=== PATIENT | male | born 1970 | race Caucasian/White ===

== ENCOUNTER → 2023-06-20 13:32 | Outpatient (REF) | payer OTHER, SELFPAY | LOC: RAD 13:32 | PROVIDERS: ATTENDING PHYSICIAN Nurse Practitioner; FAMILY PHYSICIAN Internal Medicine | DX: M54.50 Low back pain, unspecified (principal); M25.551 Pain in right hip | CPT/HCPCS: 72100; 73502 ==

== ENCOUNTER → 2023-07-08 06:29 | Day surgery (SDC) | payer OTHER, SELFPAY | LOC: GI 06:29 | PROVIDERS: ATTENDING PHYSICIAN Internal Medicine Gastroenterology | DX: Z12.11 Encounter for screening for malignant neoplasm of colon (principal); K64.0 First degree hemorrhoids; D12.3 Benign neoplasm of transverse colon; K63.5 Polyp of colon; K62.1 Rectal polyp | CPT/HCPCS: 45385; 45380; 88305 ==

== ENCOUNTER → 2023-07-29 09:54 | Outpatient (REF) | payer OTHER, SELFPAY | LOC: MRI 3T 09:54 | PROVIDERS: ATTENDING PHYSICIAN Surgery; FAMILY PHYSICIAN Internal Medicine | DX: R97.20 Elevated prostate specific antigen [PSA] (principal) | CPT/HCPCS: 72197; A9575 ==

== ENCOUNTER → 2023-08-29 08:22 | Outpatient (REF) | payer OTHER, SELFPAY ==
[2023-08-29] MEDS: ANCEF 10 IV (08:57)
[2023-08-29 09:05] VITALS: BP 139/98; BP_SYST 64
[2023-08-29 10:25] VITALS: BP 134/89; BP_SYST 57
== END ==
LOC: RADI 08:22
PROVIDERS: ATTENDING PHYSICIAN Internal Medicine Hematology & Oncology
DX: C61 Malignant neoplasm of prostate (principal); C79.51 Secondary malignant neoplasm of bone
CPT/HCPCS: 36561; 76937; 77001; 99152; 99153; C1788

== ENCOUNTER → 2023-09-20 16:17 | Outpatient (REF) | payer OTHER, SELFPAY ==
[2023-09-20 14:47] LABS: % Basophils 0.1 % (0-2); % Immature Granulocytes 17.4 % (0-0.5); % Lymphocytes 2.5 % (20.5-51.1); % Monocytes 2.2 % (1.7-9.3); % Neutrophils 77.8 % (42.2-75.2); Absolute Basophils 0.1 10^3/uL (0-0.2); Absolute Immature Granulocytes 7.1 10^3/uL (0-0.05); Absolute Monocytes 0.9 10^3/uL (0.1-0.6); Absolute Neutrophils 31.6 10^3/uL (1.4-6.5); Hematocrit 42.8 % (39.0-52.0); Hemoglobin 14.6 g/dL (13.0-18.0); Mean Corp Hgb Conc. 34.1 g/dL (33.0-37.0); Mean Corpuscular Volume 87.9 fL (80.0-94.0); Mean Platelet Volume 10.2 fL (7.4-10.4); Platelet Count 174 10^3/uL (130-400); Red Blood Cell Count 4.87 10^6/uL (4.70-6.10); Red Cell Dist. Width 15.6 % (11.5-14.5)
[2023-09-20 14:51] LABS: White Blood Cell Count 40.7 10^3/uL (4.8-10.8)
[2023-09-20 15:42] LABS: ALT (SGPT) 123 U/L (0-50); AST (SGOT) 50 U/L (17-59); Albumin 4.3 g/dl (3.5-5.0); Alkaline Phosphatase 169 U/L (38-126); Blood Urea Nitrogen 28 mg/dl (9-20); Calcium 9.4 mg/dl (8.4-10.2); Carbon Dioxide 25 mmol/L (22-30); Chloride 100 mmol/L (98-107); Glucose 131 mg/dl (70-99); Potassium 4.3 mmol/L (3.5-5.1); Sodium 135 mmol/L (135-145); Total Bilirubin 0.6 mg/dl (0.2-1.3); Total Protein 6.6 g/dl (6.3-8.2); eGFR > 60.00
== END ==
LOC: OIDL 16:17
PROVIDERS: ATTENDING PHYSICIAN Internal Medicine Hematology & Oncology
DX: C61 Malignant neoplasm of prostate (principal)
CPT/HCPCS: 80053; 85025

== ENCOUNTER → 2023-09-27 09:08 | Outpatient (REF) | payer OTHER, SELFPAY ==
[2023-09-27 10:06] LABS: Hematocrit 43.7 % (39.0-52.0); Hemoglobin 14.2 g/dL (13.0-18.0); Mean Corp Hgb Conc. 32.5 g/dL (33.0-37.0); Mean Corpuscular Hgb 29.2 pg (27.0-31.0); Mean Corpuscular Volume 89.7 fL (80.0-94.0); Red Blood Cell Count 4.87 10^6/uL (4.70-6.10); Red Cell Dist. Width 16.2 % (11.5-14.5); White Blood Cell Count 37.9 10^3/uL (4.8-10.8)
[2023-09-27 10:53] LABS: Absolute Neutrophils -Man Diff 36.3 10^3/uL (1.4-6.5); Band Neutrophils 3 % (0-3); Lymphocytes 4 % (20-51); Segmented Neutrophils 93 % (42-75)
[2023-09-27 10:55] LABS: Platelets Checked YES
[2023-09-27 10:56] LABS: Hypersegmented Neutrophil FEW; Normal RBC Morphology No
[2023-09-27 10:57] LABS: Tear Drop Red Blood Cells FEW; Total Cells Counted 100
[2023-09-27 10:58] LABS: Mean Platelet Volume 10.4 fL (7.4-10.4); Platelet Count 121 10^3/uL (130-400)
[2023-09-27 11:13] LABS: ALT (SGPT) 151 U/L (0-50); AST (SGOT) 51 U/L (17-59); Albumin 4.2 g/dl (3.5-5.0); Alkaline Phosphatase 135 U/L (38-126); Blood Urea Nitrogen 23 mg/dl (9-20); Calcium 9.3 mg/dl (8.4-10.2); Carbon Dioxide 25 mmol/L (22-30); Chloride 101 mmol/L (98-107); Glucose 69 mg/dl (70-99); Potassium 4.5 mmol/L (3.5-5.1); Sodium 137 mmol/L (135-145); Total Bilirubin 0.9 mg/dl (0.2-1.3); Total Protein 6.8 g/dl (6.3-8.2); eGFR > 60.00
== END ==
LOC: REG 09:08
PROVIDERS: ATTENDING PHYSICIAN Internal Medicine Hematology & Oncology; FAMILY PHYSICIAN Internal Medicine
DX: C61 Malignant neoplasm of prostate (principal); C79.51 Secondary malignant neoplasm of bone
CPT/HCPCS: 36415; 80053; 85025

== ENCOUNTER → 2023-10-03 16:39 | Outpatient (REF) | payer OTHER, SELFPAY | LOC: RAD 16:39 | PROVIDERS: ATTENDING PHYSICIAN Nurse Practitioner Adult Health; FAMILY PHYSICIAN Internal Medicine | DX: C61 Malignant neoplasm of prostate (principal); C79.51 Secondary malignant neoplasm of bone | CPT/HCPCS: 93971 ==

== ENCOUNTER → 2023-10-04 07:28 | Outpatient (REF) | payer OTHER, SELFPAY ==
[2023-10-04 08:50] LABS: % Basophils 0.2 % (0-2); % Eosinophils 0.1 % (0-6); % Immature Granulocytes 21.8 % (0-0.5); % Lymphocytes 9.9 % (20.5-51.1); % Monocytes 7.2 % (1.7-9.3); % Neutrophils 60.8 % (42.2-75.2); Absolute Immature Granulocytes 1.9 10^3/uL (0-0.05); Absolute Lymphocytes 0.9 10^3/uL (1.2-3.4); Absolute Monocytes 0.6 10^3/uL (0.1-0.6); Absolute Neutrophils 5.2 10^3/uL (1.4-6.5); Hematocrit 33.6 % (39.0-52.0); Hemoglobin 11.4 g/dL (13.0-18.0); Mean Corp Hgb Conc. 33.9 g/dL (33.0-37.0); Mean Corpuscular Hgb 29.4 pg (27.0-31.0); Mean Corpuscular Volume 86.6 fL (80.0-94.0); Mean Platelet Volume 9.6 fL (7.4-10.4); Nucleated Red Blood Cells % 0.7 % (-); Red Blood Cell Count 3.88 10^6/uL (4.70-6.10); Red Cell Dist. Width 16.8 % (11.5-14.5); White Blood Cell Count 8.6 10^3/uL (4.8-10.8)
[2023-10-04 09:09] LABS: ALT (SGPT) 62 U/L (0-50); AST (SGOT) 38 U/L (17-59); Albumin 3.5 g/dl (3.5-5.0); Alkaline Phosphatase 128 U/L (38-126); Blood Urea Nitrogen 10 mg/dl (9-20); Calcium 8.4 mg/dl (8.4-10.2); Carbon Dioxide 25 mmol/L (22-30); Chloride 103 mmol/L (98-107); Glucose 91 mg/dl (70-99); Potassium 3.6 mmol/L (3.5-5.1); Sodium 137 mmol/L (135-145); Total Bilirubin 0.9 mg/dl (0.2-1.3); Total Protein 5.9 g/dl (6.3-8.2); eGFR > 60.00
[2023-10-04 16:52] LABS: Platelet Count 74 10^3/uL (130-400)
== END ==
LOC: REG 07:28
PROVIDERS: ATTENDING PHYSICIAN Internal Medicine Hematology & Oncology; FAMILY PHYSICIAN Internal Medicine
DX: C61 Malignant neoplasm of prostate (principal); C79.51 Secondary malignant neoplasm of bone
CPT/HCPCS: 36415; 80053; 85025

== ENCOUNTER → 2023-10-10 08:35 | Outpatient (REF) | payer OTHER, SELFPAY ==
[2023-10-10 09:06] LABS: Hematocrit 31.8 % (39.0-52.0); Hemoglobin 10.9 g/dL (13.0-18.0); Mean Corp Hgb Conc. 34.3 g/dL (33.0-37.0); Mean Corpuscular Hgb 29.6 pg (27.0-31.0); Mean Corpuscular Volume 86.4 fL (80.0-94.0); Red Blood Cell Count 3.68 10^6/uL (4.70-6.10); Red Cell Dist. Width 17.3 % (11.5-14.5); White Blood Cell Count 18.8 10^3/uL (4.8-10.8)
[2023-10-10 09:42] LABS: ALT (SGPT) 91 U/L (0-50); AST (SGOT) 70 U/L (17-59); Albumin 3.2 g/dl (3.5-5.0); Alkaline Phosphatase 121 U/L (38-126); Blood Urea Nitrogen 7 mg/dl (9-20); Calcium 7.3 mg/dl (8.4-10.2); Carbon Dioxide 27 mmol/L (22-30); Chloride 103 mmol/L (98-107); Glucose 92 mg/dl (70-99); Iron 38 ug/dl (49-181); Potassium 3.4 mmol/L (3.5-5.1); Sodium 137 mmol/L (135-145); Total Bilirubin 0.8 mg/dl (0.2-1.3); eGFR > 60.00
[2023-10-10 09:50] LABS: Percent Saturation 20 % (20-50); Total Iron Binding Capacity 189 ug/dl (261-462)
[2023-10-10 10:11] LABS: PSA, Total - Diagnostic 0.88 ng/ml (0.0-4.0)
[2023-10-10 13:26] LABS: Platelet Count 383 10^3/uL (130-400)
[2023-10-10 13:29] LABS: Absolute Neutrophils -Man Diff 14.4 10^3/uL (1.4-6.5); Band Neutrophils 8 % (0-3); Lymphocytes 4 % (20-51); Metamyelocytes 6 % (-); Monocytes 8 % (2-9); Myelocytes 5 % (-); Normal RBC Morphology No; Nucleated Red Blood Cells 1 (-); Platelets Checked Yes; Segmented Neutrophils 69 % (42-75); Tear Drop Red Blood Cells Occasional; Total Cells Counted 100
== END ==
LOC: REG 08:35
PROVIDERS: ATTENDING PHYSICIAN Internal Medicine Hematology & Oncology; FAMILY PHYSICIAN Internal Medicine
DX: C61 Malignant neoplasm of prostate (principal); C79.51 Secondary malignant neoplasm of bone; I82.4Z1 Acute embolism and thrombosis of unspecified deep veins of right distal lower extremity
CPT/HCPCS: 36415; 80053; 82728; 83540; 83550; 84153; 85025

== ENCOUNTER → 2023-10-12 10:00 | Outpatient (REF) | payer OTHER, SELFPAY | LOC: OIDL 10:00 | PROVIDERS: ATTENDING PHYSICIAN Internal Medicine Hematology & Oncology | DX: C61 Malignant neoplasm of prostate (principal) | CPT/HCPCS: 84443 ==

== ENCOUNTER → 2023-10-17 07:42 | Outpatient (REF) | payer OTHER, SELFPAY ==
[2023-10-17 08:52] LABS: % Basophils 0.9 % (0-2); % Eosinophils 0.2 % (0-6); % Immature Granulocytes 0.5 % (0-0.5); % Lymphocytes 9.8 % (20.5-51.1); % Monocytes 0.5 % (1.7-9.3); % Neutrophils 88.1 % (42.2-75.2); Absolute Basophils 0.1 10^3/uL (0-0.2); Absolute Lymphocytes 0.6 10^3/uL (1.2-3.4); Hematocrit 34.4 % (39.0-52.0); Hemoglobin 11.1 g/dL (13.0-18.0); Mean Corp Hgb Conc. 32.3 g/dL (33.0-37.0); Mean Corpuscular Hgb 28.8 pg (27.0-31.0); Mean Corpuscular Volume 89.1 fL (80.0-94.0); Mean Platelet Volume 9.4 fL (7.4-10.4); Nucleated Red Blood Cells % 0 % (-); Platelet Count 498 10^3/uL (130-400); Red Blood Cell Count 3.86 10^6/uL (4.70-6.10); White Blood Cell Count 5.7 10^3/uL (4.8-10.8)
[2023-10-17 09:19] LABS: ALT (SGPT) 239 U/L (0-50); AST (SGOT) 90 U/L (17-59); Albumin 3.9 g/dl (3.5-5.0); Alkaline Phosphatase 124 U/L (38-126); Blood Urea Nitrogen 12 mg/dl (9-20); Carbon Dioxide 23 mmol/L (22-30); Chloride 105 mmol/L (98-107); Glucose 89 mg/dl (70-99); Potassium 4.5 mmol/L (3.5-5.1); Sodium 140 mmol/L (135-145); Total Bilirubin 0.7 mg/dl (0.2-1.3); Total Protein 6.9 g/dl (6.3-8.2); eGFR > 60.00
== END ==
LOC: REG 07:42
PROVIDERS: ATTENDING PHYSICIAN Internal Medicine Hematology & Oncology; FAMILY PHYSICIAN Internal Medicine
DX: C61 Malignant neoplasm of prostate (principal); C79.51 Secondary malignant neoplasm of bone
CPT/HCPCS: 36415; 80053; 85025

== ENCOUNTER → 2023-10-24 07:36 | Outpatient (REF) | payer OTHER, SELFPAY ==
[2023-10-24 08:40] LABS: Hematocrit 33.7 % (39.0-52.0); Hemoglobin 10.7 g/dL (13.0-18.0); Mean Corp Hgb Conc. 31.8 g/dL (33.0-37.0); Mean Corpuscular Hgb 29.5 pg (27.0-31.0); Mean Corpuscular Volume 92.8 fL (80.0-94.0); Red Blood Cell Count 3.63 10^6/uL (4.70-6.10); Red Cell Dist. Width 19.7 % (11.5-14.5); White Blood Cell Count 6.4 10^3/uL (4.8-10.8)
[2023-10-24 09:29] LABS: ALT (SGPT) 77 U/L (0-50); AST (SGOT) 40 U/L (17-59); Albumin 4.1 g/dl (3.5-5.0); Alkaline Phosphatase 142 U/L (38-126); Blood Urea Nitrogen 11 mg/dl (9-20); Calcium 9.5 mg/dl (8.4-10.2); Carbon Dioxide 23 mmol/L (22-30); Chloride 106 mmol/L (98-107); Glucose 88 mg/dl (70-99); Sodium 140 mmol/L (135-145); Total Bilirubin 0.5 mg/dl (0.2-1.3); Total Protein 6.5 g/dl (6.3-8.2); eGFR > 60.00
[2023-10-24 10:33] LABS: Mean Platelet Volume 10.1 fL (7.4-10.4); Platelet Count 164 10^3/uL (130-400)
[2023-10-24 10:34] LABS: Absolute Neutrophils -Man Diff 4.3 10^3/uL (1.4-6.5); Anisocytosis 1+; Band Neutrophils 5 % (0-3); Eosinophils 1 % (0-6); Lymphocytes 21 % (20-51); Metamyelocytes 2 % (-); Monocytes 5 % (2-9); Myelocytes 3 % (-); Normal RBC Morphology No; Platelets Checked Yes; Polychromasia Slight; Segmented Neutrophils 63 % (42-75); Total Cells Counted 100
== END ==
LOC: REG 07:36
PROVIDERS: ATTENDING PHYSICIAN Internal Medicine Hematology & Oncology; FAMILY PHYSICIAN Internal Medicine
DX: C61 Malignant neoplasm of prostate (principal); C79.51 Secondary malignant neoplasm of bone
CPT/HCPCS: 36415; 80053; 85025

== ENCOUNTER → 2023-10-31 07:09 | Outpatient (REF) | payer OTHER, SELFPAY ==
[2023-10-31 08:55] LABS: Hematocrit 31.2 % (39.0-52.0); Hemoglobin 10.5 g/dL (13.0-18.0); Mean Corp Hgb Conc. 33.7 g/dL (33.0-37.0); Mean Corpuscular Hgb 30.5 pg (27.0-31.0); Mean Corpuscular Volume 90.7 fL (80.0-94.0); Mean Platelet Volume 10.5 fL (7.4-10.4); Platelet Count 198 10^3/uL (130-400); Red Blood Cell Count 3.44 10^6/uL (4.70-6.10); Red Cell Dist. Width 19.5 % (11.5-14.5); White Blood Cell Count 16.2 10^3/uL (4.8-10.8)
[2023-10-31 09:32] LABS: ALT (SGPT) 175 U/L (0-50); AST (SGOT) 127 U/L (17-59); Alkaline Phosphatase 120 U/L (38-126); Blood Urea Nitrogen 6 mg/dl (9-20); Carbon Dioxide 24 mmol/L (22-30); Chloride 108 mmol/L (98-107); Glucose 85 mg/dl (70-99); Potassium 3.6 mmol/L (3.5-5.1); Sodium 141 mmol/L (135-145); Total Bilirubin 0.5 mg/dl (0.2-1.3); Total Protein 6.2 g/dl (6.3-8.2); eGFR > 60.00
[2023-10-31 10:00] LABS: PSA, Total - Diagnostic 0.28 ng/ml (0.0-4.0)
[2023-10-31 11:02] LABS: Absolute Neutrophils -Man Diff 13.6 10^3/uL (1.4-6.5); Band Neutrophils 4 % (0-3); Lymphocytes 7 % (20-51); Metamyelocytes 2 % (-); Monocytes 7 % (2-9); Normal RBC Morphology Yes; Platelets Checked Yes; Segmented Neutrophils 80 % (42-75); Total Cells Counted 100
== END ==
LOC: REG 07:09
PROVIDERS: ATTENDING PHYSICIAN Internal Medicine Hematology & Oncology
DX: C61 Malignant neoplasm of prostate (principal); C79.51 Secondary malignant neoplasm of bone
CPT/HCPCS: 36415; 80053; 84153; 85025

== ENCOUNTER → 2023-11-07 07:10 | Outpatient (REF) | payer OTHER, SELFPAY ==
[2023-11-07 08:13] LABS: % Basophils 0.8 % (0-2); % Eosinophils 0.2 % (0-6); % Immature Granulocytes 0.4 % (0-0.5); % Lymphocytes 17.9 % (20.5-51.1); % Monocytes 1.2 % (1.7-9.3); % Neutrophils 79.5 % (42.2-75.2); Absolute Lymphocytes 0.9 10^3/uL (1.2-3.4); Absolute Monocytes 0.1 10^3/uL (0.1-0.6); Hematocrit 33.3 % (39.0-52.0); Hemoglobin 11.2 g/dL (13.0-18.0); Mean Corp Hgb Conc. 33.6 g/dL (33.0-37.0); Mean Corpuscular Hgb 30.3 pg (27.0-31.0); Mean Platelet Volume 10.4 fL (7.4-10.4); Nucleated Red Blood Cells % 0 % (-); Platelet Count 356 10^3/uL (130-400); Red Cell Dist. Width 18.6 % (11.5-14.5)
[2023-11-07 09:03] LABS: ALT (SGPT) 235 U/L (0-50); AST (SGOT) 120 U/L (17-59); Albumin 4.3 g/dl (3.5-5.0); Alkaline Phosphatase 103 U/L (38-126); Blood Urea Nitrogen 18 mg/dl (9-20); Calcium 9.8 mg/dl (8.4-10.2); Carbon Dioxide 26 mmol/L (22-30); Chloride 104 mmol/L (98-107); Glucose 95 mg/dl (70-99); Potassium 5.1 mmol/L (3.5-5.1); Sodium 139 mmol/L (135-145); Total Bilirubin 0.6 mg/dl (0.2-1.3); Total Protein 6.6 g/dl (6.3-8.2); eGFR > 60.00
== END ==
LOC: REG 07:10
PROVIDERS: ATTENDING PHYSICIAN Internal Medicine Hematology & Oncology; FAMILY PHYSICIAN Internal Medicine
DX: C61 Malignant neoplasm of prostate (principal); C79.51 Secondary malignant neoplasm of bone
CPT/HCPCS: 36415; 80053; 85025

== ENCOUNTER → 2023-11-14 07:07 | Outpatient (REF) | payer OTHER, SELFPAY ==
[2023-11-14 08:21] LABS: Hematocrit 31.6 % (39.0-52.0); Hemoglobin 10.6 g/dL (13.0-18.0); Mean Corp Hgb Conc. 33.5 g/dL (33.0-37.0); Mean Corpuscular Hgb 31.6 pg (27.0-31.0); Mean Corpuscular Volume 94.3 fL (80.0-94.0); Mean Platelet Volume 10.7 fL (7.4-10.4); Platelet Count 189 10^3/uL (130-400); Red Blood Cell Count 3.35 10^6/uL (4.70-6.10); Red Cell Dist. Width 19.9 % (11.5-14.5); White Blood Cell Count 10.6 10^3/uL (4.8-10.8)
[2023-11-14 08:22] LABS: ALT (SGPT) 183 U/L (0-50); AST (SGOT) 83 U/L (17-59); Albumin 4.1 g/dl (3.5-5.0); Alkaline Phosphatase 144 U/L (38-126); Blood Urea Nitrogen 13 mg/dl (9-20); Calcium 9.6 mg/dl (8.4-10.2); Carbon Dioxide 27 mmol/L (22-30); Chloride 107 mmol/L (98-107); Glucose 93 mg/dl (70-99); Potassium 4.6 mmol/L (3.5-5.1); Sodium 141 mmol/L (135-145); Total Bilirubin 0.4 mg/dl (0.2-1.3); Total Protein 6.2 g/dl (6.3-8.2); eGFR > 60.00
[2023-11-14 08:48] LABS: % Basophils 0.7 % (0-2); % Eosinophils 0.2 % (0-6); % Immature Granulocytes 0.6 % (0-0.5); % Lymphocytes 9.9 % (20.5-51.1); % Monocytes 9.1 % (1.7-9.3); % Neutrophils 79.5 % (42.2-75.2); Absolute Basophils 0.1 10^3/uL (0-0.2); Absolute Immature Granulocytes 0.1 10^3/uL (0-0.05); Absolute Lymphocytes 1.1 10^3/uL (1.2-3.4); Absolute Neutrophils 8.4 10^3/uL (1.4-6.5); Nucleated Red Blood Cells % 0 % (-)
== END ==
LOC: REG 07:07
PROVIDERS: ATTENDING PHYSICIAN Internal Medicine Hematology & Oncology; FAMILY PHYSICIAN Internal Medicine
DX: C61 Malignant neoplasm of prostate (principal); C79.51 Secondary malignant neoplasm of bone
CPT/HCPCS: 36415; 80053; 85025

== ENCOUNTER → 2023-11-21 06:38 | Outpatient (REF) | payer OTHER, SELFPAY ==
[2023-11-21 07:42] LABS: Hematocrit 34.1 % (39.0-52.0); Hemoglobin 11.7 g/dL (13.0-18.0); Mean Corp Hgb Conc. 34.3 g/dL (33.0-37.0); Mean Corpuscular Hgb 31.4 pg (27.0-31.0); Mean Corpuscular Volume 91.4 fL (80.0-94.0); Mean Platelet Volume 10.6 fL (7.4-10.4); Platelet Count 216 10^3/uL (130-400); Red Blood Cell Count 3.73 10^6/uL (4.70-6.10); Red Cell Dist. Width 18.4 % (11.5-14.5); White Blood Cell Count 10.4 10^3/uL (4.8-10.8)
[2023-11-21 08:04] LABS: ALT (SGPT) 282 U/L (0-50); AST (SGOT) 178 U/L (17-59); Albumin 4.4 g/dl (3.5-5.0); Alkaline Phosphatase 106 U/L (38-126); Blood Urea Nitrogen 19 mg/dl (9-20); Calcium 9.8 mg/dl (8.4-10.2); Carbon Dioxide 26 mmol/L (22-30); Chloride 108 mmol/L (98-107); Glucose 100 mg/dl (70-99); Potassium 4.3 mmol/L (3.5-5.1); Sodium 141 mmol/L (135-145); Total Bilirubin 0.5 mg/dl (0.2-1.3); Total Protein 6.6 g/dl (6.3-8.2); eGFR > 60.00
[2023-11-21 08:19] LABS: % Basophils 0.7 % (0-2); % Eosinophils 0.6 % (0-6); % Immature Granulocytes 6.5 % (0-0.5); % Lymphocytes 12.9 % (20.5-51.1); % Monocytes 8.1 % (1.7-9.3); % Neutrophils 71.2 % (42.2-75.2); Absolute Basophils 0.1 10^3/uL (0-0.2); Absolute Eosinophils 0.1 10^3/uL (0-0.7); Absolute Immature Granulocytes 0.7 10^3/uL (0-0.05); Absolute Lymphocytes 1.4 10^3/uL (1.2-3.4); Absolute Monocytes 0.9 10^3/uL (0.1-0.6); Absolute Neutrophils 7.4 10^3/uL (1.4-6.5); Nucleated Red Blood Cells % 0.2 % (-)
[2023-11-21 08:39] LABS: PSA, Total - Diagnostic 0.21 ng/ml (0.0-4.0)
== END ==
LOC: REG 06:38
PROVIDERS: ATTENDING PHYSICIAN Internal Medicine Hematology & Oncology; FAMILY PHYSICIAN Internal Medicine
DX: C61 Malignant neoplasm of prostate (principal); C79.51 Secondary malignant neoplasm of bone
CPT/HCPCS: 36415; 80053; 84153; 85025

== ENCOUNTER → 2023-11-28 06:42 | Outpatient (REF) | payer OTHER, SELFPAY ==
[2023-11-28 08:04] LABS: % Eosinophils 0.6 % (0-6); % Immature Granulocytes 0.7 % (0-0.5); % Lymphocytes 20.7 % (20.5-51.1); % Monocytes 10.4 % (1.7-9.3); % Neutrophils 66.6 % (42.2-75.2); Absolute Basophils 0.1 10^3/uL (0-0.2); Absolute Eosinophils 0.1 10^3/uL (0-0.7); Absolute Immature Granulocytes 0.1 10^3/uL (0-0.05); Absolute Neutrophils 6.5 10^3/uL (1.4-6.5); Hemoglobin 11.2 g/dL (13.0-18.0); Mean Corp Hgb Conc. 33.9 g/dL (33.0-37.0); Mean Corpuscular Hgb 32.6 pg (27.0-31.0); Mean Corpuscular Volume 95.9 fL (80.0-94.0); Nucleated Red Blood Cells % 0 % (-); Platelet Count 282 10^3/uL (130-400); Red Blood Cell Count 3.44 10^6/uL (4.70-6.10); White Blood Cell Count 9.8 10^3/uL (4.8-10.8)
[2023-11-28 08:33] LABS: ALT (SGPT) 202 U/L (0-50); AST (SGOT) 78 U/L (17-59); Albumin 4.3 g/dl (3.5-5.0); Alkaline Phosphatase 77 U/L (38-126); Blood Urea Nitrogen 20 mg/dl (9-20); Calcium 9.6 mg/dl (8.4-10.2); Carbon Dioxide 27 mmol/L (22-30); Chloride 106 mmol/L (98-107); Glucose 94 mg/dl (70-99); Potassium 4.2 mmol/L (3.5-5.1); Sodium 142 mmol/L (135-145); Total Bilirubin 0.4 mg/dl (0.2-1.3); Total Protein 6.2 g/dl (6.3-8.2); eGFR > 60.00
== END ==
LOC: REG 06:42
PROVIDERS: ATTENDING PHYSICIAN Internal Medicine Hematology & Oncology; FAMILY PHYSICIAN Internal Medicine
DX: C61 Malignant neoplasm of prostate (principal); C79.51 Secondary malignant neoplasm of bone
CPT/HCPCS: 36415; 80053; 85025

== ENCOUNTER → 2023-12-05 07:07 | Outpatient (REF) | payer OTHER, SELFPAY ==
[2023-12-05 08:17] LABS: % Basophils 0.8 % (0-2); % Eosinophils 0.6 % (0-6); % Immature Granulocytes 0.5 % (0-0.5); % Monocytes 11.7 % (1.7-9.3); % Neutrophils 63.4 % (42.2-75.2); Absolute Basophils 0.1 10^3/uL (0-0.2); Absolute Eosinophils 0.1 10^3/uL (0-0.7); Absolute Lymphocytes 1.8 10^3/uL (1.2-3.4); Absolute Monocytes 0.9 10^3/uL (0.1-0.6); Absolute Neutrophils 4.9 10^3/uL (1.4-6.5); Hemoglobin 12.4 g/dL (13.0-18.0); Mean Corp Hgb Conc. 32.6 g/dL (33.0-37.0); Mean Corpuscular Hgb 31.2 pg (27.0-31.0); Mean Corpuscular Volume 95.5 fL (80.0-94.0); Mean Platelet Volume 10.6 fL (7.4-10.4); Nucleated Red Blood Cells % 0 % (-); Platelet Count 275 10^3/uL (130-400); Red Blood Cell Count 3.98 10^6/uL (4.70-6.10); Red Cell Dist. Width 16.7 % (11.5-14.5); White Blood Cell Count 7.8 10^3/uL (4.8-10.8)
[2023-12-05 08:55] LABS: ALT (SGPT) 156 U/L (0-50); AST (SGOT) 57 U/L (17-59); Albumin 4.4 g/dl (3.5-5.0); Alkaline Phosphatase 74 U/L (38-126); Blood Urea Nitrogen 21 mg/dl (9-20); Calcium 10.2 mg/dl (8.4-10.2); Carbon Dioxide 27 mmol/L (22-30); Chloride 104 mmol/L (98-107); Glucose 93 mg/dl (70-99); Potassium 4.3 mmol/L (3.5-5.1); Sodium 138 mmol/L (135-145); Total Bilirubin 0.5 mg/dl (0.2-1.3); Total Protein 6.5 g/dl (6.3-8.2); eGFR > 60.00
[2023-12-05 09:21] LABS: TSH Reflex To Free T4 2.09 uIU/ml (0.47-4.68)
== END ==
LOC: REG 07:07
PROVIDERS: ATTENDING PHYSICIAN Internal Medicine Hematology & Oncology; FAMILY PHYSICIAN Internal Medicine
DX: C61 Malignant neoplasm of prostate (principal); C79.51 Secondary malignant neoplasm of bone; I82.4Z1 Acute embolism and thrombosis of unspecified deep veins of right distal lower extremity; R60.0 Localized edema; K59.00 Constipation, unspecified; E83.51 Hypocalcemia
CPT/HCPCS: 36415; 80053; 84443; 85025

== ENCOUNTER → 2023-12-12 07:28 | Outpatient (REF) | payer OTHER, SELFPAY | LOC: MRI 07:28 | PROVIDERS: ATTENDING PHYSICIAN Internal Medicine Hematology & Oncology; FAMILY PHYSICIAN Internal Medicine | DX: M54.50 Low back pain, unspecified (principal) | CPT/HCPCS: 72158; A9575 ==

== ENCOUNTER → 2023-12-15 06:53 | Outpatient (REF) | payer OTHER, SELFPAY ==
[2023-12-15 07:51] LABS: ALT (SGPT) 98 U/L (0-50); AST (SGOT) 44 U/L (17-59); Albumin 4.5 g/dl (3.5-5.0); Alkaline Phosphatase 75 U/L (38-126); Blood Urea Nitrogen 20 mg/dl (9-20); Calcium 9.9 mg/dl (8.4-10.2); Carbon Dioxide 27 mmol/L (22-30); Chloride 103 mmol/L (98-107); Glucose 97 mg/dl (70-99); Potassium 4.1 mmol/L (3.5-5.1); Sodium 136 mmol/L (135-145); Total Bilirubin 0.6 mg/dl (0.2-1.3); Total Protein 6.7 g/dl (6.3-8.2); eGFR > 60.00
== END ==
LOC: REG 06:53
PROVIDERS: ATTENDING PHYSICIAN Internal Medicine Hematology & Oncology; FAMILY PHYSICIAN Internal Medicine
DX: C61 Malignant neoplasm of prostate (principal); C79.51 Secondary malignant neoplasm of bone; I82.4Z1 Acute embolism and thrombosis of unspecified deep veins of right distal lower extremity; R60.0 Localized edema; K59.00 Constipation, unspecified; E83.51 Hypocalcemia
CPT/HCPCS: 36415; 80053; 84443

== ENCOUNTER → 2023-12-28 07:17 | Outpatient (REF) | payer OTHER, SELFPAY ==
[2023-12-28 11:04] LABS: Blood Urea Nitrogen 16 mg/dl (9-20); Calcium 9.4 mg/dl (8.4-10.2); Carbon Dioxide 26 mmol/L (22-30); Chloride 106 mmol/L (98-107); Glucose 103 mg/dl (70-99); Sodium 144 mmol/L (135-145); eGFR > 60.00
== END ==
LOC: REG 07:17
PROVIDERS: ATTENDING PHYSICIAN Internal Medicine Hematology & Oncology; FAMILY PHYSICIAN Internal Medicine
DX: C61 Malignant neoplasm of prostate (principal); C79.51 Secondary malignant neoplasm of bone; I82.4Z1 Acute embolism and thrombosis of unspecified deep veins of right distal lower extremity; R60.0 Localized edema; K59.00 Constipation, unspecified; E83.51 Hypocalcemia
CPT/HCPCS: 36415; 80048

== ENCOUNTER → 2024-01-04 07:17 | Outpatient (REF) | payer OTHER, SELFPAY ==
[2024-01-04 07:56] LABS: % Basophils 0.8 % (0-2); % Immature Granulocytes 0.2 % (0-0.5); % Lymphocytes 18.8 % (20.5-51.1); % Monocytes 12.1 % (1.7-9.3); % Neutrophils 67.1 % (42.2-75.2); Absolute Eosinophils 0.1 10^3/uL (0-0.7); Absolute Lymphocytes 0.9 10^3/uL (1.2-3.4); Absolute Monocytes 0.6 10^3/uL (0.1-0.6); Absolute Neutrophils 3.3 10^3/uL (1.4-6.5); Hematocrit 41.2 % (39.0-52.0); Hemoglobin 13.7 g/dL (13.0-18.0); Mean Corp Hgb Conc. 33.3 g/dL (33.0-37.0); Mean Corpuscular Hgb 31.1 pg (27.0-31.0); Mean Corpuscular Volume 93.6 fL (80.0-94.0); Mean Platelet Volume 9.9 fL (7.4-10.4); Nucleated Red Blood Cells % 0 % (-); Platelet Count 242 10^3/uL (130-400); Red Cell Dist. Width 12.8 % (11.5-14.5); White Blood Cell Count 4.9 10^3/uL (4.8-10.8)
[2024-01-04 08:23] LABS: ALT (SGPT) 58 U/L (0-50); AST (SGOT) 54 U/L (17-59); Albumin 4.4 g/dl (3.5-5.0); Alkaline Phosphatase 85 U/L (38-126); Blood Urea Nitrogen 14 mg/dl (9-20); Calcium 9.8 mg/dl (8.4-10.2); Carbon Dioxide 26 mmol/L (22-30); Chloride 106 mmol/L (98-107); Glucose 108 mg/dl (70-99); Potassium 4.9 mmol/L (3.5-5.1); Sodium 144 mmol/L (135-145); Total Bilirubin 0.5 mg/dl (0.2-1.3); Total Protein 6.7 g/dl (6.3-8.2); eGFR > 60.00
[2024-01-04 08:53] LABS: PSA, Total - Diagnostic 0.21 ng/ml (0.0-4.0)
== END ==
LOC: REG 07:17
PROVIDERS: ATTENDING PHYSICIAN Internal Medicine Hematology & Oncology; FAMILY PHYSICIAN Internal Medicine
DX: C61 Malignant neoplasm of prostate (principal); C79.51 Secondary malignant neoplasm of bone
CPT/HCPCS: 36415; 80053; 84153; 85025

== ENCOUNTER → 2024-01-11 06:51 | Outpatient (REF) | payer OTHER, SELFPAY ==
[2024-01-11 08:02] LABS: ALT (SGPT) 44 U/L (0-50); AST (SGOT) 35 U/L (17-59); Albumin 4.3 g/dl (3.5-5.0); Alkaline Phosphatase 82 U/L (38-126); Blood Urea Nitrogen 15 mg/dl (9-20); Calcium 9.1 mg/dl (8.4-10.2); Carbon Dioxide 23 mmol/L (22-30); Chloride 105 mmol/L (98-107); Glucose 104 mg/dl (70-99); Potassium 4.3 mmol/L (3.5-5.1); Sodium 142 mmol/L (135-145); Total Bilirubin 0.5 mg/dl (0.2-1.3); Total Protein 6.5 g/dl (6.3-8.2); eGFR > 60.00
[2024-01-11 08:19] LABS: % Basophils 0.9 % (0-2); % Eosinophils 0.9 % (0-6); % Immature Granulocytes 0.2 % (0-0.5); % Lymphocytes 22.6 % (20.5-51.1); % Monocytes 12.2 % (1.7-9.3); % Neutrophils 63.2 % (42.2-75.2); Absolute Monocytes 0.6 10^3/uL (0.1-0.6); Absolute Neutrophils 2.9 10^3/uL (1.4-6.5); Hematocrit 38.6 % (39.0-52.0); Mean Corp Hgb Conc. 33.7 g/dL (33.0-37.0); Mean Corpuscular Hgb 29.9 pg (27.0-31.0); Mean Corpuscular Volume 88.7 fL (80.0-94.0); Mean Platelet Volume 10.2 fL (7.4-10.4); Nucleated Red Blood Cells % 0 % (-); Platelet Count 225 10^3/uL (130-400); Red Blood Cell Count 4.35 10^6/uL (4.70-6.10); Red Cell Dist. Width 12.6 % (11.5-14.5); White Blood Cell Count 4.6 10^3/uL (4.8-10.8)
== END ==
LOC: REG 06:51
PROVIDERS: ATTENDING PHYSICIAN Internal Medicine Hematology & Oncology; FAMILY PHYSICIAN Internal Medicine
DX: C61 Malignant neoplasm of prostate (principal); C79.51 Secondary malignant neoplasm of bone
CPT/HCPCS: 36415; 80053; 85025

== ENCOUNTER → 2024-01-18 06:36 | Outpatient (REF) | payer OTHER, SELFPAY ==
[2024-01-18 08:07] LABS: % Basophils 0.8 % (0-2); % Eosinophils 1.2 % (0-6); % Immature Granulocytes 0.4 % (0-0.5); % Lymphocytes 24.2 % (20.5-51.1); % Neutrophils 60.4 % (42.2-75.2); Absolute Eosinophils 0.1 10^3/uL (0-0.7); Absolute Lymphocytes 1.2 10^3/uL (1.2-3.4); Absolute Monocytes 0.7 10^3/uL (0.1-0.6); Hematocrit 39.2 % (39.0-52.0); Mean Corp Hgb Conc. 33.2 g/dL (33.0-37.0); Mean Corpuscular Hgb 29.7 pg (27.0-31.0); Mean Corpuscular Volume 89.5 fL (80.0-94.0); Mean Platelet Volume 10.5 fL (7.4-10.4); Nucleated Red Blood Cells % 0 % (-); Platelet Count 232 10^3/uL (130-400); Red Blood Cell Count 4.38 10^6/uL (4.70-6.10); Red Cell Dist. Width 12.7 % (11.5-14.5)
[2024-01-18 08:37] LABS: ALT (SGPT) 39 U/L (0-50); AST (SGOT) 33 U/L (17-59); Albumin 4.2 g/dl (3.5-5.0); Alkaline Phosphatase 78 U/L (38-126); Blood Urea Nitrogen 15 mg/dl (9-20); Calcium 9.7 mg/dl (8.4-10.2); Carbon Dioxide 26 mmol/L (22-30); Chloride 106 mmol/L (98-107); Glucose 106 mg/dl (70-99); Sodium 144 mmol/L (135-145); Total Bilirubin 0.4 mg/dl (0.2-1.3); Total Protein 6.4 g/dl (6.3-8.2); eGFR > 60.00
== END ==
LOC: REG 06:36
PROVIDERS: ATTENDING PHYSICIAN Internal Medicine Hematology & Oncology; FAMILY PHYSICIAN Internal Medicine
DX: C61 Malignant neoplasm of prostate (principal); C79.51 Secondary malignant neoplasm of bone
CPT/HCPCS: 36415; 80053; 85025

== ENCOUNTER → 2024-01-25 06:42 | Outpatient (REF) | payer OTHER, SELFPAY ==
[2024-01-25 07:31] LABS: % Basophils 0.8 % (0-2); % Eosinophils 0.9 % (0-6); % Immature Granulocytes 0.4 % (0-0.5); % Lymphocytes 21.2 % (20.5-51.1); % Monocytes 10.5 % (1.7-9.3); % Neutrophils 66.2 % (42.2-75.2); Absolute Eosinophils 0.1 10^3/uL (0-0.7); Absolute Lymphocytes 1.1 10^3/uL (1.2-3.4); Absolute Monocytes 0.6 10^3/uL (0.1-0.6); Absolute Neutrophils 3.5 10^3/uL (1.4-6.5); Hematocrit 41.1 % (39.0-52.0); Mean Corp Hgb Conc. 34.1 g/dL (33.0-37.0); Mean Corpuscular Hgb 29.8 pg (27.0-31.0); Mean Corpuscular Volume 87.4 fL (80.0-94.0); Mean Platelet Volume 10.1 fL (7.4-10.4); Nucleated Red Blood Cells % 0 % (-); Platelet Count 239 10^3/uL (130-400); Red Cell Dist. Width 12.6 % (11.5-14.5); White Blood Cell Count 5.3 10^3/uL (4.8-10.8)
[2024-01-25 08:22] LABS: ALT (SGPT) 35 U/L (0-50); AST (SGOT) 32 U/L (17-59); Albumin 4.5 g/dl (3.5-5.0); Alkaline Phosphatase 83 U/L (38-126); Blood Urea Nitrogen 15 mg/dl (9-20); Calcium 9.4 mg/dl (8.4-10.2); Carbon Dioxide 26 mmol/L (22-30); Chloride 104 mmol/L (98-107); Glucose 103 mg/dl (70-99); Potassium 4.5 mmol/L (3.5-5.1); Sodium 139 mmol/L (135-145); Total Bilirubin 0.6 mg/dl (0.2-1.3); Total Protein 6.8 g/dl (6.3-8.2); eGFR > 60.00
== END ==
LOC: REG 06:42
PROVIDERS: ATTENDING PHYSICIAN Internal Medicine Hematology & Oncology; FAMILY PHYSICIAN Internal Medicine
DX: C61 Malignant neoplasm of prostate (principal); C79.51 Secondary malignant neoplasm of bone
CPT/HCPCS: 36415; 80053; 85025

== ENCOUNTER → 2024-01-31 06:27 | Outpatient (REF) | payer OTHER, SELFPAY ==
[2024-01-31 07:54] LABS: % Basophils 0.5 % (0-2); % Immature Granulocytes 0.3 % (0-0.5); % Lymphocytes 19.9 % (20.5-51.1); % Neutrophils 66.3 % (42.2-75.2); Absolute Eosinophils 0.1 10^3/uL (0-0.7); Absolute Lymphocytes 1.2 10^3/uL (1.2-3.4); Absolute Monocytes 0.7 10^3/uL (0.1-0.6); Hematocrit 39.7 % (39.0-52.0); Hemoglobin 13.3 g/dL (13.0-18.0); Mean Corp Hgb Conc. 33.5 g/dL (33.0-37.0); Mean Corpuscular Hgb 29.1 pg (27.0-31.0); Mean Corpuscular Volume 86.9 fL (80.0-94.0); Mean Platelet Volume 10.6 fL (7.4-10.4); Nucleated Red Blood Cells % 0 % (-); Platelet Count 255 10^3/uL (130-400); Red Blood Cell Count 4.57 10^6/uL (4.70-6.10); Red Cell Dist. Width 12.8 % (11.5-14.5); White Blood Cell Count 6.1 10^3/uL (4.8-10.8)
[2024-01-31 08:21] LABS: ALT (SGPT) 35 U/L (0-50); AST (SGOT) 30 U/L (17-59); Albumin 4.3 g/dl (3.5-5.0); Alkaline Phosphatase 78 U/L (38-126); Blood Urea Nitrogen 22 mg/dl (9-20); Calcium 9.5 mg/dl (8.4-10.2); Carbon Dioxide 25 mmol/L (22-30); Chloride 105 mmol/L (98-107); Glucose 97 mg/dl (70-99); HDL Cholesterol 46 mg/dl; LDL Cholesterol, Calculated 173 mg/dl; Potassium 4.5 mmol/L (3.5-5.1); Sodium 141 mmol/L (135-145); Total Bilirubin 0.6 mg/dl (0.2-1.3); Total Cholesterol 248 mg/dl (50-199); Total Protein 6.7 g/dl (6.3-8.2); Triglyceride 149 mg/dl (10-149); Very Low Density Lipoprotein 29 mg/dl (0-30); eGFR > 60.00
== END ==
LOC: REG 06:27
PROVIDERS: ATTENDING PHYSICIAN Internal Medicine Hematology & Oncology; FAMILY PHYSICIAN Internal Medicine; REFERRING PHYSICIAN Internal Medicine
DX: C61 Malignant neoplasm of prostate (principal); C79.51 Secondary malignant neoplasm of bone; E78.00 Pure hypercholesterolemia, unspecified
CPT/HCPCS: 36415; 80053; 80061; 85025

== ENCOUNTER → 2024-02-01 07:17 | Outpatient (REF) | payer OTHER, SELFPAY | LOC: RCS 07:17 | PROVIDERS: ATTENDING PHYSICIAN Internal Medicine; FAMILY PHYSICIAN Internal Medicine | DX: I82.401 Acute embolism and thrombosis of unspecified deep veins of right lower extremity (principal); C61 Malignant neoplasm of prostate; R07.9 Chest pain, unspecified; T38.6X5A Adverse effect of antigonadotrophins, antiestrogens, antiandrogens, not elsewhere classified, initial encounter | CPT/HCPCS: 93306; 93356 ==

== ENCOUNTER → 2024-02-03 10:17 | Outpatient (REF) | payer OTHER, SELFPAY | LOC: RCS 10:17 | PROVIDERS: ATTENDING PHYSICIAN Internal Medicine; FAMILY PHYSICIAN Internal Medicine | DX: I82.401 Acute embolism and thrombosis of unspecified deep veins of right lower extremity (principal); C61 Malignant neoplasm of prostate; R07.9 Chest pain, unspecified; T38.6X5A Adverse effect of antigonadotrophins, antiestrogens, antiandrogens, not elsewhere classified, initial encounter | CPT/HCPCS: 93017 ==

== ENCOUNTER → 2024-02-08 06:42 | Outpatient (REF) | payer OTHER, SELFPAY ==
[2024-02-08 07:18] LABS: % Basophils 0.6 % (0-2); % Eosinophils 1.3 % (0-6); % Immature Granulocytes 0.4 % (0-0.5); % Lymphocytes 23.2 % (20.5-51.1); % Monocytes 10.8 % (1.7-9.3); % Neutrophils 63.7 % (42.2-75.2); Absolute Eosinophils 0.1 10^3/uL (0-0.7); Absolute Lymphocytes 1.2 10^3/uL (1.2-3.4); Absolute Monocytes 0.6 10^3/uL (0.1-0.6); Absolute Neutrophils 3.4 10^3/uL (1.4-6.5); Hemoglobin 13.8 g/dL (13.0-18.0); Mean Corp Hgb Conc. 33.7 g/dL (33.0-37.0); Mean Corpuscular Hgb 28.6 pg (27.0-31.0); Mean Corpuscular Volume 84.9 fL (80.0-94.0); Mean Platelet Volume 10.3 fL (7.4-10.4); Nucleated Red Blood Cells % 0 % (-); Platelet Count 254 10^3/uL (130-400); Red Blood Cell Count 4.83 10^6/uL (4.70-6.10); Red Cell Dist. Width 12.8 % (11.5-14.5); White Blood Cell Count 5.3 10^3/uL (4.8-10.8)
[2024-02-08 08:05] LABS: ALT (SGPT) 31 U/L (0-50); AST (SGOT) 29 U/L (17-59); Albumin 4.5 g/dl (3.5-5.0); Alkaline Phosphatase 74 U/L (38-126); Blood Urea Nitrogen 18 mg/dl (9-20); Calcium 9.7 mg/dl (8.4-10.2); Carbon Dioxide 24 mmol/L (22-30); Chloride 105 mmol/L (98-107); Glucose 108 mg/dl (70-99); Potassium 4.5 mmol/L (3.5-5.1); Sodium 143 mmol/L (135-145); Total Bilirubin 0.5 mg/dl (0.2-1.3); Total Protein 6.8 g/dl (6.3-8.2); eGFR > 60.00
[2024-02-08 08:31] LABS: PSA, Total - Diagnostic 0.24 ng/ml (0.0-4.0)
== END ==
LOC: REG 06:42
PROVIDERS: ATTENDING PHYSICIAN Internal Medicine Hematology & Oncology; FAMILY PHYSICIAN Internal Medicine
DX: C61 Malignant neoplasm of prostate (principal); C79.51 Secondary malignant neoplasm of bone
CPT/HCPCS: 36415; 80053; 84153; 85025

== ENCOUNTER → 2024-02-15 06:30 | Outpatient (REF) | payer OTHER, SELFPAY ==
[2024-02-15 08:17] LABS: % Basophils 0.7 % (0-2); % Eosinophils 1.3 % (0-6); % Immature Granulocytes 0.2 % (0-0.5); % Lymphocytes 22.8 % (20.5-51.1); % Monocytes 10.3 % (1.7-9.3); % Neutrophils 64.7 % (42.2-75.2); Absolute Eosinophils 0.1 10^3/uL (0-0.7); Absolute Lymphocytes 1.3 10^3/uL (1.2-3.4); Absolute Monocytes 0.6 10^3/uL (0.1-0.6); Absolute Neutrophils 3.6 10^3/uL (1.4-6.5); Hematocrit 40.3 % (39.0-52.0); Hemoglobin 13.7 g/dL (13.0-18.0); Mean Corpuscular Hgb 29.9 pg (27.0-31.0); Mean Platelet Volume 10.8 fL (7.4-10.4); Nucleated Red Blood Cells % 0 % (-); Platelet Count 237 10^3/uL (130-400); Red Blood Cell Count 4.58 10^6/uL (4.70-6.10); Red Cell Dist. Width 12.8 % (11.5-14.5); White Blood Cell Count 5.5 10^3/uL (4.8-10.8)
[2024-02-15 11:10] LABS: ALT (SGPT) 28 U/L (0-50); AST (SGOT) 28 U/L (17-59); Albumin 4.3 g/dl (3.5-5.0); Alkaline Phosphatase 81 U/L (38-126); Blood Urea Nitrogen 19 mg/dl (9-20); Calcium 9.5 mg/dl (8.4-10.2); Carbon Dioxide 25 mmol/L (22-30); Chloride 105 mmol/L (98-107); Glucose 98 mg/dl (70-99); Potassium 4.4 mmol/L (3.5-5.1); Sodium 142 mmol/L (135-145); Total Bilirubin 0.5 mg/dl (0.2-1.3); Total Protein 6.7 g/dl (6.3-8.2); eGFR > 60.00
== END ==
LOC: REG 06:30
PROVIDERS: ATTENDING PHYSICIAN Internal Medicine Hematology & Oncology; FAMILY PHYSICIAN Internal Medicine
DX: C61 Malignant neoplasm of prostate (principal); C79.51 Secondary malignant neoplasm of bone
CPT/HCPCS: 36415; 80053; 85025

== ENCOUNTER → 2024-02-22 06:30 | Outpatient (REF) | payer OTHER, SELFPAY ==
[2024-02-22 08:00] LABS: % Basophils 0.5 % (0-2); % Eosinophils 1.1 % (0-6); % Immature Granulocytes 0.2 % (0-0.5); % Lymphocytes 18.7 % (20.5-51.1); % Monocytes 9.1 % (1.7-9.3); % Neutrophils 70.4 % (42.2-75.2); Absolute Eosinophils 0.1 10^3/uL (0-0.7); Absolute Lymphocytes 1.2 10^3/uL (1.2-3.4); Absolute Monocytes 0.6 10^3/uL (0.1-0.6); Absolute Neutrophils 4.7 10^3/uL (1.4-6.5); Hematocrit 39.4 % (39.0-52.0); Hemoglobin 13.2 g/dL (13.0-18.0); Mean Corp Hgb Conc. 33.5 g/dL (33.0-37.0); Mean Corpuscular Hgb 28.8 pg (27.0-31.0); Mean Corpuscular Volume 85.8 fL (80.0-94.0); Mean Platelet Volume 10.6 fL (7.4-10.4); Nucleated Red Blood Cells % 0 % (-); Platelet Count 268 10^3/uL (130-400); Red Blood Cell Count 4.59 10^6/uL (4.70-6.10); Red Cell Dist. Width 12.9 % (11.5-14.5); White Blood Cell Count 6.6 10^3/uL (4.8-10.8)
[2024-02-22 08:29] LABS: ALT (SGPT) 29 U/L (0-50); AST (SGOT) 28 U/L (17-59); Albumin 4.4 g/dl (3.5-5.0); Alkaline Phosphatase 82 U/L (38-126); Blood Urea Nitrogen 13 mg/dl (9-20); Calcium 9.2 mg/dl (8.4-10.2); Carbon Dioxide 23 mmol/L (22-30); Chloride 105 mmol/L (98-107); Glucose 105 mg/dl (70-99); Potassium 4.4 mmol/L (3.5-5.1); Sodium 143 mmol/L (135-145); Total Bilirubin 0.3 mg/dl (0.2-1.3); Total Protein 6.9 g/dl (6.3-8.2); eGFR > 60.00
== END ==
LOC: REG 06:30
PROVIDERS: ATTENDING PHYSICIAN Internal Medicine Hematology & Oncology; FAMILY PHYSICIAN Internal Medicine
DX: C61 Malignant neoplasm of prostate (principal); C79.51 Secondary malignant neoplasm of bone
CPT/HCPCS: 36415; 80053; 85025

== ENCOUNTER → 2024-02-29 06:28 | Outpatient (REF) | payer OTHER, SELFPAY ==
[2024-02-29 07:15] LABS: Hematocrit 39.7 % (39.0-52.0); Hemoglobin 13.4 g/dL (13.0-18.0); Mean Corp Hgb Conc. 33.8 g/dL (33.0-37.0); Mean Corpuscular Hgb 28.5 pg (27.0-31.0); Mean Corpuscular Volume 84.3 fL (80.0-94.0); Mean Platelet Volume 10.5 fL (7.4-10.4); Platelet Count 179 10^3/uL (130-400); Red Blood Cell Count 4.71 10^6/uL (4.70-6.10); Red Cell Dist. Width 13.1 % (11.5-14.5); White Blood Cell Count 4.6 10^3/uL (4.8-10.8)
[2024-02-29 07:38] LABS: ALT (SGPT) 47 U/L (0-50); AST (SGOT) 34 U/L (17-59); Albumin 4.4 g/dl (3.5-5.0); Alkaline Phosphatase 80 U/L (38-126); Blood Urea Nitrogen 15 mg/dl (9-20); Calcium 9.2 mg/dl (8.4-10.2); Carbon Dioxide 23 mmol/L (22-30); Chloride 106 mmol/L (98-107); Glucose 101 mg/dl (70-99); Potassium 4.4 mmol/L (3.5-5.1); Sodium 142 mmol/L (135-145); Total Bilirubin 0.5 mg/dl (0.2-1.3); Total Protein 7.1 g/dl (6.3-8.2); eGFR > 60.00
[2024-02-29 07:41] LABS: % Basophils 0.6 % (0-2); % Eosinophils 1.5 % (0-6); % Immature Granulocytes 0.2 % (0-0.5); % Lymphocytes 43.1 % (20.5-51.1); % Monocytes 13.4 % (1.7-9.3); % Neutrophils 41.2 % (42.2-75.2); Absolute Eosinophils 0.1 10^3/uL (0-0.7); Absolute Monocytes 0.6 10^3/uL (0.1-0.6); Absolute Neutrophils 1.9 10^3/uL (1.4-6.5); Nucleated Red Blood Cells % 0 % (-)
== END ==
LOC: REG 06:28
PROVIDERS: ATTENDING PHYSICIAN Internal Medicine Hematology & Oncology; FAMILY PHYSICIAN Internal Medicine
DX: C61 Malignant neoplasm of prostate (principal); C79.51 Secondary malignant neoplasm of bone
CPT/HCPCS: 36415; 80053; 85025

== ENCOUNTER → 2024-03-06 08:11 | Outpatient (REF) | payer OTHER, SELFPAY ==
[2024-03-06 08:50] LABS: % Basophils 0.4 % (0-2); % Eosinophils 0.9 % (0-6); % Immature Granulocytes 0.3 % (0-0.5); % Lymphocytes 24.9 % (20.5-51.1); % Monocytes 7.5 % (1.7-9.3); Absolute Eosinophils 0.1 10^3/uL (0-0.7); Absolute Lymphocytes 1.7 10^3/uL (1.2-3.4); Absolute Monocytes 0.5 10^3/uL (0.1-0.6); Absolute Neutrophils 4.6 10^3/uL (1.4-6.5); Hematocrit 40.9 % (39.0-52.0); Mean Corp Hgb Conc. 34.2 g/dL (33.0-37.0); Mean Corpuscular Hgb 29.6 pg (27.0-31.0); Mean Corpuscular Volume 86.5 fL (80.0-94.0); Nucleated Red Blood Cells % 0 % (-); Platelet Count 276 10^3/uL (130-400); Red Blood Cell Count 4.73 10^6/uL (4.70-6.10); Red Cell Dist. Width 13.2 % (11.5-14.5); White Blood Cell Count 6.9 10^3/uL (4.8-10.8)
[2024-03-06 09:14] LABS: ALT (SGPT) 31 U/L (0-50); AST (SGOT) 28 U/L (17-59); Albumin 4.6 g/dl (3.5-5.0); Alkaline Phosphatase 84 U/L (38-126); Blood Urea Nitrogen 14 mg/dl (9-20); Calcium 9.8 mg/dl (8.4-10.2); Carbon Dioxide 25 mmol/L (22-30); Chloride 105 mmol/L (98-107); Glucose 105 mg/dl (70-99); Potassium 4.7 mmol/L (3.5-5.1); Sodium 141 mmol/L (135-145); Total Bilirubin 0.6 mg/dl (0.2-1.3); Total Protein 7.5 g/dl (6.3-8.2); eGFR > 60.00
== END ==
LOC: REG 08:11
PROVIDERS: ATTENDING PHYSICIAN Internal Medicine Hematology & Oncology; FAMILY PHYSICIAN Internal Medicine
DX: C61 Malignant neoplasm of prostate (principal); C79.51 Secondary malignant neoplasm of bone
CPT/HCPCS: 36415; 80053; 84153; 85025

== ENCOUNTER → 2024-03-16 06:33 | Outpatient (REF) | payer OTHER, SELFPAY ==
[2024-03-16 07:52] LABS: % Basophils 0.6 % (0-2); % Eosinophils 1.4 % (0-6); % Immature Granulocytes 0.4 % (0-0.5); % Lymphocytes 31.6 % (20.5-51.1); % Monocytes 12.2 % (1.7-9.3); % Neutrophils 53.8 % (42.2-75.2); Absolute Eosinophils 0.1 10^3/uL (0-0.7); Absolute Lymphocytes 1.6 10^3/uL (1.2-3.4); Absolute Monocytes 0.6 10^3/uL (0.1-0.6); Absolute Neutrophils 2.7 10^3/uL (1.4-6.5); Hematocrit 42.7 % (39.0-52.0); Hemoglobin 13.3 g/dL (13.0-18.0); Mean Corp Hgb Conc. 31.1 g/dL (33.0-37.0); Mean Corpuscular Hgb 28.7 pg (27.0-31.0); Mean Platelet Volume 10.1 fL (7.4-10.4); Nucleated Red Blood Cells % 0 % (-); Platelet Count 271 10^3/uL (130-400); Red Blood Cell Count 4.64 10^6/uL (4.70-6.10); Red Cell Dist. Width 13.9 % (11.5-14.5); White Blood Cell Count 5.1 10^3/uL (4.8-10.8)
[2024-03-16 08:22] LABS: ALT (SGPT) 28 U/L (0-50); AST (SGOT) 29 U/L (17-59); Albumin 4.5 g/dl (3.5-5.0); Alkaline Phosphatase 81 U/L (38-126); Blood Urea Nitrogen 16 mg/dl (9-20); Calcium 8.8 mg/dl (8.4-10.2); Carbon Dioxide 25 mmol/L (22-30); Chloride 106 mmol/L (98-107); Glucose 100 mg/dl (70-99); Potassium 5.2 mmol/L (3.5-5.1); Sodium 143 mmol/L (135-145); Total Bilirubin 0.5 mg/dl (0.2-1.3); Total Protein 7.2 g/dl (6.3-8.2); eGFR > 60.00
== END ==
LOC: REG 06:33
PROVIDERS: ATTENDING PHYSICIAN Internal Medicine Hematology & Oncology; FAMILY PHYSICIAN Internal Medicine
DX: C61 Malignant neoplasm of prostate (principal); C79.51 Secondary malignant neoplasm of bone
CPT/HCPCS: 36415; 80053; 85025

== ENCOUNTER → 2024-03-19 14:31 | Outpatient (REF) | payer OTHER, SELFPAY ==
[2024-03-19 15:20] LABS: Urine Albumin Negative (Neg - Trace); Urine Bilirubin Negative (Negative); Urine Character Slightly Cloudy (Clear); Urine Color Yellow; Urine Glucose Negative (Negative); Urine Ketone Negative (Negative); Urine Leukocyte Negative (Negative); Urine Nitrite Negative (Negative); Urine Occult Blood 4+ (Negative); Urine Specific Gravity 1.015 (<1.030); Urine Urobilinogen Negative (Neg - 1+)
[2024-03-19 15:45] LABS: Urine Bacteria Few (Negative); Urine Red Blood Cell >100 /HPF (0-2)
== END ==
LOC: REG 14:31
PROVIDERS: ATTENDING PHYSICIAN Internal Medicine Hematology & Oncology; FAMILY PHYSICIAN Internal Medicine
DX: C61 Malignant neoplasm of prostate (principal); C79.51 Secondary malignant neoplasm of bone; I82.4Z1 Acute embolism and thrombosis of unspecified deep veins of right distal lower extremity; R60.0 Localized edema; K59.00 Constipation, unspecified; E83.51 Hypocalcemia
CPT/HCPCS: 81003; 81015; 87086

== ENCOUNTER → 2024-03-27 06:43 | Outpatient (REF) | payer OTHER, SELFPAY ==
[2024-03-27 08:48] LABS: ALT (SGPT) 26 U/L (0-50); AST (SGOT) 27 U/L (17-59); Albumin 4.5 g/dl (3.5-5.0); Alkaline Phosphatase 87 U/L (38-126); Blood Urea Nitrogen 15 mg/dl (9-20); Calcium 9.2 mg/dl (8.4-10.2); Carbon Dioxide 26 mmol/L (22-30); Chloride 105 mmol/L (98-107); Glucose 106 mg/dl (70-99); Potassium 4.8 mmol/L (3.5-5.1); Sodium 141 mmol/L (135-145); Total Bilirubin 0.4 mg/dl (0.2-1.3); Total Protein 7.1 g/dl (6.3-8.2); eGFR > 60.00
[2024-03-27 08:51] LABS: % Basophils 0.5 % (0-2); % Eosinophils 0.9 % (0-6); % Immature Granulocytes 0.3 % (0-0.5); % Lymphocytes 21.7 % (20.5-51.1); % Monocytes 8.6 % (1.7-9.3); Absolute Eosinophils 0.1 10^3/uL (0-0.7); Absolute Lymphocytes 1.4 10^3/uL (1.2-3.4); Absolute Monocytes 0.6 10^3/uL (0.1-0.6); Absolute Neutrophils 4.4 10^3/uL (1.4-6.5); Hemoglobin 13.2 g/dL (13.0-18.0); Mean Corp Hgb Conc. 32.2 g/dL (33.0-37.0); Mean Corpuscular Hgb 28.7 pg (27.0-31.0); Mean Corpuscular Volume 89.1 fL (80.0-94.0); Mean Platelet Volume 10.2 fL (7.4-10.4); Nucleated Red Blood Cells % 0 % (-); Platelet Count 272 10^3/uL (130-400); Red Cell Dist. Width 14.4 % (11.5-14.5); White Blood Cell Count 6.5 10^3/uL (4.8-10.8)
== END ==
LOC: REG 06:43
PROVIDERS: ATTENDING PHYSICIAN Internal Medicine Hematology & Oncology; FAMILY PHYSICIAN Internal Medicine
DX: C61 Malignant neoplasm of prostate (principal); C79.51 Secondary malignant neoplasm of bone
CPT/HCPCS: 36415; 80053; 85025

== ENCOUNTER → 2024-04-03 06:19 | Outpatient (REF) | payer OTHER, SELFPAY ==
[2024-04-03 07:31] LABS: % Basophils 0.3 % (0-2); % Eosinophils 1.2 % (0-6); % Immature Granulocytes 0.3 % (0-0.5); % Lymphocytes 22.5 % (20.5-51.1); % Monocytes 9.1 % (1.7-9.3); % Neutrophils 66.6 % (42.2-75.2); Absolute Eosinophils 0.1 10^3/uL (0-0.7); Absolute Lymphocytes 1.5 10^3/uL (1.2-3.4); Absolute Monocytes 0.6 10^3/uL (0.1-0.6); Absolute Neutrophils 4.6 10^3/uL (1.4-6.5); Hematocrit 38.7 % (39.0-52.0); Hemoglobin 12.8 g/dL (13.0-18.0); Mean Corp Hgb Conc. 33.1 g/dL (33.0-37.0); Mean Corpuscular Hgb 28.8 pg (27.0-31.0); Mean Corpuscular Volume 87.2 fL (80.0-94.0); Mean Platelet Volume 10.1 fL (7.4-10.4); Nucleated Red Blood Cells % 0 % (-); Platelet Count 253 10^3/uL (130-400); Red Blood Cell Count 4.44 10^6/uL (4.70-6.10); Red Cell Dist. Width 14.5 % (11.5-14.5); White Blood Cell Count 6.8 10^3/uL (4.8-10.8)
[2024-04-03 07:37] LABS: ALT (SGPT) 23 U/L (0-50); AST (SGOT) 22 U/L (17-59); Albumin 4.5 g/dl (3.5-5.0); Alkaline Phosphatase 85 U/L (38-126); Blood Urea Nitrogen 15 mg/dl (9-20); Calcium 9.2 mg/dl (8.4-10.2); Carbon Dioxide 26 mmol/L (22-30); Chloride 104 mmol/L (98-107); Glucose 105 mg/dl (70-99); Potassium 4.4 mmol/L (3.5-5.1); Sodium 140 mmol/L (135-145); Total Bilirubin 0.7 mg/dl (0.2-1.3); Total Protein 7.2 g/dl (6.3-8.2); eGFR > 60.00
[2024-04-03 08:05] LABS: PSA, Total - Diagnostic 0.53 ng/ml (0.0-4.0)
== END ==
LOC: REG 06:19
PROVIDERS: ATTENDING PHYSICIAN Internal Medicine Hematology & Oncology; FAMILY PHYSICIAN Internal Medicine
DX: C61 Malignant neoplasm of prostate (principal); C79.51 Secondary malignant neoplasm of bone; I82.4Z1 Acute embolism and thrombosis of unspecified deep veins of right distal lower extremity; R60.0 Localized edema; K59.00 Constipation, unspecified; E83.51 Hypocalcemia
CPT/HCPCS: 36415; 80053; 84153; 85025

== ENCOUNTER → 2024-04-23 06:33 | Outpatient (REF) | payer OTHER, SELFPAY ==
[2024-04-23 07:41] LABS: % Basophils 0.6 % (0-2); % Immature Granulocytes 0.3 % (0-0.5); % Monocytes 8.9 % (1.7-9.3); % Neutrophils 63.2 % (42.2-75.2); Absolute Eosinophils 0.1 10^3/uL (0-0.7); Absolute Lymphocytes 1.6 10^3/uL (1.2-3.4); Absolute Monocytes 0.6 10^3/uL (0.1-0.6); Hematocrit 39.4 % (39.0-52.0); Hemoglobin 13.1 g/dL (13.0-18.0); Mean Corp Hgb Conc. 33.2 g/dL (33.0-37.0); Mean Corpuscular Hgb 29.4 pg (27.0-31.0); Mean Corpuscular Volume 88.3 fL (80.0-94.0); Mean Platelet Volume 10.1 fL (7.4-10.4); Nucleated Red Blood Cells % 0 % (-); Platelet Count 266 10^3/uL (130-400); Red Blood Cell Count 4.46 10^6/uL (4.70-6.10); Red Cell Dist. Width 14.6 % (11.5-14.5); White Blood Cell Count 6.3 10^3/uL (4.8-10.8)
[2024-04-23 08:11] LABS: ALT (SGPT) 20 U/L (0-50); AST (SGOT) 23 U/L (17-59); Albumin 4.4 g/dl (3.5-5.0); Alkaline Phosphatase 87 U/L (38-126); Blood Urea Nitrogen 14 mg/dl (9-20); Calcium 9.2 mg/dl (8.4-10.2); Carbon Dioxide 25 mmol/L (22-30); Chloride 104 mmol/L (98-107); Glucose 108 mg/dl (70-99); Potassium 4.4 mmol/L (3.5-5.1); Sodium 139 mmol/L (135-145); Total Bilirubin 0.5 mg/dl (0.2-1.3); Total Protein 6.9 g/dl (6.3-8.2); eGFR > 60.00
[2024-04-23 08:42] LABS: PSA, Total - Diagnostic 0.73 ng/ml (0.0-4.0)
== END ==
LOC: REG 06:33
PROVIDERS: ATTENDING PHYSICIAN Internal Medicine Hematology & Oncology; FAMILY PHYSICIAN Internal Medicine
DX: C61 Malignant neoplasm of prostate (principal); C79.51 Secondary malignant neoplasm of bone; I82.4Z1 Acute embolism and thrombosis of unspecified deep veins of right distal lower extremity; R60.0 Localized edema; K59.00 Constipation, unspecified; E83.51 Hypocalcemia
CPT/HCPCS: 36415; 80053; 84153; 85025

== ENCOUNTER → 2024-04-30 18:17 | Outpatient (REF) | payer OTHER, SELFPAY | LOC: MRI 18:17 | PROVIDERS: ATTENDING PHYSICIAN Internal Medicine Hematology & Oncology; FAMILY PHYSICIAN Internal Medicine | DX: C61 Malignant neoplasm of prostate (principal); C79.51 Secondary malignant neoplasm of bone; R60.0 Localized edema; K59.00 Constipation, unspecified; E83.51 Hypocalcemia | CPT/HCPCS: 72148 ==

== ENCOUNTER → 2024-05-14 08:02 | Outpatient (REF) | payer OTHER, SELFPAY ==
[2024-05-14 09:13] LABS: % Basophils 0.3 % (0-2); % Eosinophils 0.4 % (0-6); % Immature Granulocytes 0.3 % (0-0.5); % Lymphocytes 15.8 % (20.5-51.1); % Monocytes 5.4 % (1.7-9.3); % Neutrophils 77.8 % (42.2-75.2); Absolute Lymphocytes 1.1 10^3/uL (1.2-3.4); Absolute Monocytes 0.4 10^3/uL (0.1-0.6); Absolute Neutrophils 5.5 10^3/uL (1.4-6.5); Hematocrit 41.3 % (39.0-52.0); Hemoglobin 13.7 g/dL (13.0-18.0); Mean Corp Hgb Conc. 33.2 g/dL (33.0-37.0); Mean Corpuscular Hgb 29.3 pg (27.0-31.0); Mean Corpuscular Volume 88.4 fL (80.0-94.0); Mean Platelet Volume 10.1 fL (7.4-10.4); Nucleated Red Blood Cells % 0 % (-); Platelet Count 262 10^3/uL (130-400); Red Blood Cell Count 4.67 10^6/uL (4.70-6.10); Red Cell Dist. Width 14.1 % (11.5-14.5); White Blood Cell Count 7.1 10^3/uL (4.8-10.8)
[2024-05-14 09:46] LABS: ALT (SGPT) 30 U/L (0-50); AST (SGOT) 29 U/L (17-59); Albumin 4.8 g/dl (3.5-5.0); Alkaline Phosphatase 107 U/L (38-126); Blood Urea Nitrogen 14 mg/dl (9-20); Carbon Dioxide 26 mmol/L (22-30); Chloride 102 mmol/L (98-107); Glucose 102 mg/dl (70-99); Potassium 4.7 mmol/L (3.5-5.1); Sodium 140 mmol/L (135-145); Total Bilirubin 0.5 mg/dl (0.2-1.3); Total Protein 7.7 g/dl (6.3-8.2); eGFR > 60.00
[2024-05-14 10:04] LABS: Free T3 4.03 pg/ml (2.77-5.27)
[2024-05-14 10:18] LABS: PSA, Total - Diagnostic 1.03 ng/ml (0.0-4.0); TSH Reflex To Free T4 1.37 uIU/ml (0.47-4.68)
== END ==
LOC: REG 08:02
PROVIDERS: ATTENDING PHYSICIAN Internal Medicine Hematology & Oncology
DX: C61 Malignant neoplasm of prostate (principal); C79.51 Secondary malignant neoplasm of bone; I82.4Z1 Acute embolism and thrombosis of unspecified deep veins of right distal lower extremity; R60.0 Localized edema; K59.00 Constipation, unspecified; E83.51 Hypocalcemia
CPT/HCPCS: 36415; 80053; 84153; 84443; 84481; 85025

== ENCOUNTER → 2024-06-04 06:22 | Outpatient (REF) | payer OTHER, SELFPAY ==
[2024-06-04 08:21] LABS: % Basophils 0.5 % (0-2); % Eosinophils 1.8 % (0-6); % Immature Granulocytes 0.2 % (0-0.5); % Lymphocytes 18.2 % (20.5-51.1); % Neutrophils 67.3 % (42.2-75.2); Absolute Eosinophils 0.1 10^3/uL (0-0.7); Absolute Lymphocytes 0.8 10^3/uL (1.2-3.4); Absolute Monocytes 0.5 10^3/uL (0.1-0.6); Hematocrit 40.9 % (39.0-52.0); Hemoglobin 13.2 g/dL (13.0-18.0); Mean Corp Hgb Conc. 32.3 g/dL (33.0-37.0); Mean Corpuscular Hgb 29.1 pg (27.0-31.0); Mean Corpuscular Volume 90.1 fL (80.0-94.0); Mean Platelet Volume 10.4 fL (7.4-10.4); Nucleated Red Blood Cells % 0 % (-); Platelet Count 177 10^3/uL (130-400); Red Blood Cell Count 4.54 10^6/uL (4.70-6.10); White Blood Cell Count 4.4 10^3/uL (4.8-10.8)
[2024-06-04 08:49] LABS: ALT (SGPT) 42 U/L (0-50); AST (SGOT) 32 U/L (17-59); Albumin 4.8 g/dl (3.5-5.0); Alkaline Phosphatase 89 U/L (38-126); Blood Urea Nitrogen 15 mg/dl (9-20); Calcium 9.5 mg/dl (8.4-10.2); Carbon Dioxide 28 mmol/L (22-30); Chloride 101 mmol/L (98-107); Glucose 96 mg/dl (70-99); Potassium 4.4 mmol/L (3.5-5.1); Sodium 139 mmol/L (135-145); Total Bilirubin 0.6 mg/dl (0.2-1.3); Total Protein 7.1 g/dl (6.3-8.2); eGFR > 60.00
[2024-06-04 09:18] LABS: PSA, Total - Diagnostic 1.09 ng/ml (0.0-4.0)
== END ==
LOC: REG 06:22
PROVIDERS: ATTENDING PHYSICIAN Internal Medicine Hematology & Oncology; FAMILY PHYSICIAN Internal Medicine
DX: C61 Malignant neoplasm of prostate (principal); C79.51 Secondary malignant neoplasm of bone; I82.4Z1 Acute embolism and thrombosis of unspecified deep veins of right distal lower extremity; R60.0 Localized edema; K59.00 Constipation, unspecified; E83.51 Hypocalcemia
CPT/HCPCS: 36415; 80053; 84153; 85025

== ENCOUNTER → 2024-06-25 06:35 | Outpatient (REF) | payer OTHER, SELFPAY ==
[2024-06-25 06:55] LABS: % Basophils 0.5 % (0-2); % Eosinophils 1.4 % (0-6); % Immature Granulocytes 0.4 % (0-0.5); % Lymphocytes 17.4 % (20.5-51.1); % Neutrophils 70.3 % (42.2-75.2); Absolute Eosinophils 0.1 10^3/uL (0-0.7); Absolute Monocytes 0.6 10^3/uL (0.1-0.6); Absolute Neutrophils 3.9 10^3/uL (1.4-6.5); Hematocrit 39.5 % (39.0-52.0); Mean Corp Hgb Conc. 32.9 g/dL (33.0-37.0); Mean Corpuscular Hgb 29.5 pg (27.0-31.0); Mean Corpuscular Volume 89.6 fL (80.0-94.0); Mean Platelet Volume 9.5 fL (7.4-10.4); Nucleated Red Blood Cells % 0 % (-); Platelet Count 182 10^3/uL (130-400); Red Blood Cell Count 4.41 10^6/uL (4.70-6.10); Red Cell Dist. Width 13.6 % (11.5-14.5); White Blood Cell Count 5.6 10^3/uL (4.8-10.8)
[2024-06-25 07:26] LABS: ALT (SGPT) 31 U/L (0-50); AST (SGOT) 26 U/L (17-59); Albumin 4.2 g/dl (3.5-5.0); Alkaline Phosphatase 85 U/L (38-126); Blood Urea Nitrogen 17 mg/dl (9-20); Calcium 9.7 mg/dl (8.4-10.2); Carbon Dioxide 24 mmol/L (22-30); Chloride 108 mmol/L (98-107); Glucose 114 mg/dl (70-99); Potassium 4.6 mmol/L (3.5-5.1); Sodium 139 mmol/L (135-145); Total Bilirubin 0.5 mg/dl (0.2-1.3); Total Protein 6.9 g/dl (6.3-8.2); eGFR > 60.00
[2024-06-25 07:45] LABS: Free T3 3.05 pg/ml (2.77-5.27); Free T4 0.86 ng/dl (0.78-2.19)
[2024-06-25 07:59] LABS: PSA, Total - Diagnostic 1.23 ng/ml (0.0-4.0); TSH 2.09 uIU/ml (0.47-4.68)
== END ==
LOC: REG 06:35
PROVIDERS: ATTENDING PHYSICIAN Internal Medicine Hematology & Oncology; FAMILY PHYSICIAN Internal Medicine
DX: C61 Malignant neoplasm of prostate (principal); C79.51 Secondary malignant neoplasm of bone; I82.4Z1 Acute embolism and thrombosis of unspecified deep veins of right distal lower extremity; R60.0 Localized edema; K59.00 Constipation, unspecified; E83.51 Hypocalcemia
CPT/HCPCS: 36415; 80053; 84153; 84439; 84443; 84481; 85025

== ENCOUNTER → 2024-07-02 06:17 | Outpatient (REF) | payer OTHER, SELFPAY ==
[2024-07-02 07:37] LABS: % Basophils 0.8 % (0-2); % Eosinophils 1.5 % (0-6); % Immature Granulocytes 0.4 % (0-0.5); % Lymphocytes 20.1 % (20.5-51.1); % Monocytes 11.1 % (1.7-9.3); % Neutrophils 66.1 % (42.2-75.2); Absolute Eosinophils 0.1 10^3/uL (0-0.7); Absolute Monocytes 0.5 10^3/uL (0.1-0.6); Absolute Neutrophils 3.2 10^3/uL (1.4-6.5); Hematocrit 39.2 % (39.0-52.0); Hemoglobin 12.7 g/dL (13.0-18.0); Mean Corp Hgb Conc. 32.4 g/dL (33.0-37.0); Mean Corpuscular Hgb 29.2 pg (27.0-31.0); Mean Corpuscular Volume 90.1 fL (80.0-94.0); Mean Platelet Volume 10.2 fL (7.4-10.4); Nucleated Red Blood Cells % 0 % (-); Platelet Count 178 10^3/uL (130-400); Red Blood Cell Count 4.35 10^6/uL (4.70-6.10); Red Cell Dist. Width 13.7 % (11.5-14.5); White Blood Cell Count 4.8 10^3/uL (4.8-10.8)
[2024-07-02 07:56] LABS: ALT (SGPT) 25 U/L (0-50); AST (SGOT) 25 U/L (17-59); Albumin 4.5 g/dl (3.5-5.0); Alkaline Phosphatase 87 U/L (38-126); Blood Urea Nitrogen 15 mg/dl (9-20); Calcium 9.4 mg/dl (8.4-10.2); Carbon Dioxide 25 mmol/L (22-30); Chloride 104 mmol/L (98-107); Glucose 106 mg/dl (70-99); Potassium 4.4 mmol/L (3.5-5.1); Sodium 139 mmol/L (135-145); Total Bilirubin 0.8 mg/dl (0.2-1.3); Total Protein 7.1 g/dl (6.3-8.2); eGFR > 60.00
== END ==
LOC: REG 06:17
PROVIDERS: ATTENDING PHYSICIAN Internal Medicine Hematology & Oncology; FAMILY PHYSICIAN Internal Medicine
DX: C61 Malignant neoplasm of prostate (principal); C79.51 Secondary malignant neoplasm of bone; I82.4Z1 Acute embolism and thrombosis of unspecified deep veins of right distal lower extremity; R60.0 Localized edema; K59.00 Constipation, unspecified; E83.51 Hypocalcemia; C7A.1 Malignant poorly differentiated neuroendocrine tumors
CPT/HCPCS: 36415; 80053; 85025

== ENCOUNTER → 2024-07-16 06:26 | Outpatient (REF) | payer OTHER, SELFPAY ==
[2024-07-16 07:15] LABS: Hematocrit 36.4 % (39.0-52.0); Hemoglobin 12.2 g/dL (13.0-18.0); Mean Corp Hgb Conc. 33.5 g/dL (33.0-37.0); Mean Corpuscular Hgb 30.1 pg (27.0-31.0); Mean Corpuscular Volume 89.9 fL (80.0-94.0); Platelet Count 136 10^3/uL (130-400); Red Blood Cell Count 4.05 10^6/uL (4.70-6.10); Red Cell Dist. Width 13.7 % (11.5-14.5); White Blood Cell Count 8.1 10^3/uL (4.8-10.8)
[2024-07-16 07:29] LABS: % Basophils 0.7 % (0-2); % Eosinophils 0.4 % (0-6); % Immature Granulocytes 6.4 % (0-0.5); % Lymphocytes 15.5 % (20.5-51.1); % Monocytes 7.7 % (1.7-9.3); % Neutrophils 69.3 % (42.2-75.2); Absolute Basophils 0.1 10^3/uL (0-0.2); Absolute Immature Granulocytes 0.5 10^3/uL (0-0.05); Absolute Lymphocytes 1.3 10^3/uL (1.2-3.4); Absolute Monocytes 0.6 10^3/uL (0.1-0.6); Absolute Neutrophils 5.6 10^3/uL (1.4-6.5); Nucleated Red Blood Cells % 0 % (-)
== END ==
LOC: REG 06:26
PROVIDERS: ATTENDING PHYSICIAN Internal Medicine Hematology & Oncology; FAMILY PHYSICIAN Internal Medicine
DX: C61 Malignant neoplasm of prostate (principal); C79.51 Secondary malignant neoplasm of bone; I82.4Z1 Acute embolism and thrombosis of unspecified deep veins of right distal lower extremity; R60.0 Localized edema; K59.00 Constipation, unspecified; E83.51 Hypocalcemia; C7A.1 Malignant poorly differentiated neuroendocrine tumors
CPT/HCPCS: 36415; 85025

== ENCOUNTER → 2024-07-20 10:41 | Outpatient (REF) | payer OTHER, SELFPAY ==
[2024-07-20 12:44] LABS: % Basophils 0.4 % (0-2); % Eosinophils 0.1 % (0-6); % Immature Granulocytes 1.1 % (0-0.5); % Lymphocytes 12.5 % (20.5-51.1); % Monocytes 6.1 % (1.7-9.3); % Neutrophils 79.8 % (42.2-75.2); Absolute Immature Granulocytes 0.1 10^3/uL (0-0.05); Absolute Lymphocytes 1.2 10^3/uL (1.2-3.4); Absolute Monocytes 0.6 10^3/uL (0.1-0.6); Absolute Neutrophils 7.9 10^3/uL (1.4-6.5); Hematocrit 36.3 % (39.0-52.0); Hemoglobin 12.2 g/dL (13.0-18.0); Mean Corp Hgb Conc. 33.6 g/dL (33.0-37.0); Mean Corpuscular Hgb 30.3 pg (27.0-31.0); Mean Corpuscular Volume 90.1 fL (80.0-94.0); Mean Platelet Volume 9.8 fL (7.4-10.4); Nucleated Red Blood Cells % 0 % (-); Platelet Count 152 10^3/uL (130-400); Red Blood Cell Count 4.03 10^6/uL (4.70-6.10); White Blood Cell Count 9.9 10^3/uL (4.8-10.8)
[2024-07-20 12:58] LABS: Urine Albumin 1+ (Neg - Trace); Urine Bilirubin Negative (Negative); Urine Character Clear (Clear); Urine Color Yellow; Urine Glucose Negative (Negative); Urine Ketone Negative (Negative); Urine Leukocyte Negative (Negative); Urine Nitrite Negative (Negative); Urine Occult Blood 4+ (Negative); Urine Urobilinogen Negative (Neg - 1+)
[2024-07-20 13:11] LABS: Urine Bacteria Few (Negative); Urine Mucus Few; Urine Red Blood Cell 21-25 /HPF (0-2); Urine White Cell 0-2 /HPF (0-5)
[2024-07-20 14:34] LABS: ALT (SGPT) 21 U/L (0-50); AST (SGOT) 26 U/L (17-59); Albumin 4.8 g/dl (3.5-5.0); Alkaline Phosphatase 118 U/L (38-126); Blood Urea Nitrogen 17 mg/dl (9-20); Calcium 9.7 mg/dl (8.4-10.2); Carbon Dioxide 25 mmol/L (22-30); Chloride 107 mmol/L (98-107); Glucose 102 mg/dl (70-99); Potassium 4.5 mmol/L (3.5-5.1); Sodium 142 mmol/L (135-145); Total Bilirubin 0.5 mg/dl (0.2-1.3); Total Protein 7.1 g/dl (6.3-8.2); eGFR > 60.00
== END ==
LOC: HWLAB 10:41
PROVIDERS: ATTENDING PHYSICIAN Internal Medicine Hematology & Oncology; FAMILY PHYSICIAN Internal Medicine
DX: C61 Malignant neoplasm of prostate (principal); C79.51 Secondary malignant neoplasm of bone; I82.4Z1 Acute embolism and thrombosis of unspecified deep veins of right distal lower extremity; R60.0 Localized edema; K59.00 Constipation, unspecified; E83.51 Hypocalcemia; C7A.1 Malignant poorly differentiated neuroendocrine tumors
CPT/HCPCS: 36415; 80053; 81003; 81015; 85025; 87086

== ENCOUNTER → 2024-07-23 06:37 | Outpatient (REF) | payer OTHER, SELFPAY ==
[2024-07-23 07:23] LABS: % Basophils 0.4 % (0-2); % Eosinophils 0.1 % (0-6); % Immature Granulocytes 0.8 % (0-0.5); % Lymphocytes 12.3 % (20.5-51.1); % Monocytes 7.3 % (1.7-9.3); % Neutrophils 79.1 % (42.2-75.2); Absolute Immature Granulocytes 0.1 10^3/uL (0-0.05); Absolute Monocytes 0.6 10^3/uL (0.1-0.6); Absolute Neutrophils 6.3 10^3/uL (1.4-6.5); Hematocrit 35.2 % (39.0-52.0); Mean Corp Hgb Conc. 34.1 g/dL (33.0-37.0); Mean Corpuscular Hgb 30.2 pg (27.0-31.0); Mean Corpuscular Volume 88.7 fL (80.0-94.0); Mean Platelet Volume 9.4 fL (7.4-10.4); Nucleated Red Blood Cells % 0 % (-); Platelet Count 194 10^3/uL (130-400); Red Blood Cell Count 3.97 10^6/uL (4.70-6.10); Red Cell Dist. Width 14.2 % (11.5-14.5)
[2024-07-23 07:56] LABS: ALT (SGPT) 19 U/L (0-50); AST (SGOT) 23 U/L (17-59); Albumin 4.3 g/dl (3.5-5.0); Alkaline Phosphatase 99 U/L (38-126); Blood Urea Nitrogen 14 mg/dl (9-20); Calcium 9.4 mg/dl (8.4-10.2); Carbon Dioxide 24 mmol/L (22-30); Chloride 108 mmol/L (98-107); Glucose 113 mg/dl (70-99); Potassium 4.5 mmol/L (3.5-5.1); Sodium 142 mmol/L (135-145); Total Bilirubin 0.5 mg/dl (0.2-1.3); Total Protein 6.7 g/dl (6.3-8.2); eGFR > 60.00
[2024-07-23 08:26] LABS: TSH 1.37 uIU/ml (0.47-4.68)
[2024-07-23 09:07] LABS: PSA, Total - Diagnostic 1.62 ng/ml (0.0-4.0)
== END ==
LOC: REG 06:37
PROVIDERS: ATTENDING PHYSICIAN Internal Medicine Hematology & Oncology; FAMILY PHYSICIAN Internal Medicine
DX: C61 Malignant neoplasm of prostate (principal); C79.51 Secondary malignant neoplasm of bone; I82.4Z1 Acute embolism and thrombosis of unspecified deep veins of right distal lower extremity; R60.0 Localized edema; K59.00 Constipation, unspecified; E83.51 Hypocalcemia; C7A.1 Malignant poorly differentiated neuroendocrine tumors
CPT/HCPCS: 36415; 80053; 84153; 84443; 85025

== ENCOUNTER → 2024-07-27 15:11 | Outpatient (REF) | payer OTHER, SELFPAY | LOC: RAD 15:11 | PROVIDERS: ATTENDING PHYSICIAN Nurse Practitioner Adult Health | DX: R31.0 Gross hematuria (principal) | CPT/HCPCS: 74176 ==

== ENCOUNTER → 2024-07-30 06:23 | Outpatient (REF) | payer OTHER, SELFPAY ==
[2024-07-30 07:42] LABS: Hemoglobin 11.7 g/dL (13.0-18.0); Mean Corp Hgb Conc. 34.4 g/dL (33.0-37.0); Mean Corpuscular Hgb 31.2 pg (27.0-31.0); Mean Corpuscular Volume 90.7 fL (80.0-94.0); Mean Platelet Volume 9.9 fL (7.4-10.4); Platelet Count 348 10^3/uL (130-400); Red Blood Cell Count 3.75 10^6/uL (4.70-6.10); Red Cell Dist. Width 14.5 % (11.5-14.5); White Blood Cell Count 27.4 10^3/uL (4.8-10.8)
[2024-07-30 12:21] LABS: Absolute Neutrophils -Man Diff 25.7 10^3/uL (1.4-6.5); Band Neutrophils 3 % (0-3); Lymphocytes 6 % (20-51); Platelets Checked Yes; Segmented Neutrophils 91 % (42-75)
[2024-07-30 12:22] LABS: Normal RBC Morphology Yes; Total Cells Counted 100
== END ==
LOC: REG 06:23
PROVIDERS: ATTENDING PHYSICIAN Internal Medicine Hematology & Oncology; FAMILY PHYSICIAN Internal Medicine
DX: C61 Malignant neoplasm of prostate (principal); C79.51 Secondary malignant neoplasm of bone; I82.4Z1 Acute embolism and thrombosis of unspecified deep veins of right distal lower extremity; R60.0 Localized edema; K59.00 Constipation, unspecified; E83.51 Hypocalcemia; C7A.1 Malignant poorly differentiated neuroendocrine tumors
CPT/HCPCS: 36415; 85025

== ENCOUNTER → 2024-08-06 06:26 | Outpatient (REF) | payer OTHER, SELFPAY ==
[2024-08-06 07:15] LABS: % Basophils 0.6 % (0-2); % Eosinophils 0.2 % (0-6); % Immature Granulocytes 1.7 % (0-0.5); % Lymphocytes 13.1 % (20.5-51.1); % Neutrophils 75.4 % (42.2-75.2); Absolute Basophils 0.1 10^3/uL (0-0.2); Absolute Immature Granulocytes 0.1 10^3/uL (0-0.05); Absolute Lymphocytes 1.1 10^3/uL (1.2-3.4); Absolute Monocytes 0.7 10^3/uL (0.1-0.6); Absolute Neutrophils 6.1 10^3/uL (1.4-6.5); Hemoglobin 11.5 g/dL (13.0-18.0); Mean Corp Hgb Conc. 33.8 g/dL (33.0-37.0); Mean Corpuscular Volume 91.6 fL (80.0-94.0); Mean Platelet Volume 10.3 fL (7.4-10.4); Nucleated Red Blood Cells % 0 % (-); Platelet Count 173 10^3/uL (130-400); Red Blood Cell Count 3.71 10^6/uL (4.70-6.10); Red Cell Dist. Width 15.7 % (11.5-14.5); White Blood Cell Count 8.1 10^3/uL (4.8-10.8)
== END ==
LOC: REG 06:26
PROVIDERS: ATTENDING PHYSICIAN Internal Medicine Hematology & Oncology; FAMILY PHYSICIAN Internal Medicine
DX: C61 Malignant neoplasm of prostate (principal); C79.51 Secondary malignant neoplasm of bone; I82.4Z1 Acute embolism and thrombosis of unspecified deep veins of right distal lower extremity; R60.0 Localized edema; K59.00 Constipation, unspecified; E83.51 Hypocalcemia; C7A.1 Malignant poorly differentiated neuroendocrine tumors
CPT/HCPCS: 36415; 85025

== ENCOUNTER → 2024-08-13 06:15 | Outpatient (REF) | payer OTHER, SELFPAY ==
[2024-08-13 07:24] LABS: % Basophils 0.4 % (0-2); % Eosinophils 0.3 % (0-6); % Immature Granulocytes 3.1 % (0-0.5); % Lymphocytes 11.8 % (20.5-51.1); % Monocytes 9.5 % (1.7-9.3); % Neutrophils 74.9 % (42.2-75.2); Absolute Immature Granulocytes 0.3 10^3/uL (0-0.05); Absolute Lymphocytes 1.2 10^3/uL (1.2-3.4); Absolute Monocytes 0.9 10^3/uL (0.1-0.6); Absolute Neutrophils 7.4 10^3/uL (1.4-6.5); Hematocrit 33.5 % (39.0-52.0); Hemoglobin 11.4 g/dL (13.0-18.0); Mean Platelet Volume 10.2 fL (7.4-10.4); Nucleated Red Blood Cells % 0 % (-); Platelet Count 184 10^3/uL (130-400); Red Blood Cell Count 3.68 10^6/uL (4.70-6.10); Red Cell Dist. Width 16.2 % (11.5-14.5); White Blood Cell Count 9.9 10^3/uL (4.8-10.8)
[2024-08-13 07:44] LABS: ALT (SGPT) 18 U/L (0-50); AST (SGOT) 22 U/L (17-59); Albumin 4.3 g/dl (3.5-5.0); Alkaline Phosphatase 111 U/L (38-126); Blood Urea Nitrogen 14 mg/dl (9-20); Calcium 9.3 mg/dl (8.4-10.2); Carbon Dioxide 24 mmol/L (22-30); Chloride 106 mmol/L (98-107); Glucose 105 mg/dl (70-99); Potassium 4.5 mmol/L (3.5-5.1); Sodium 141 mmol/L (135-145); Total Bilirubin 0.4 mg/dl (0.2-1.3); Total Protein 6.7 g/dl (6.3-8.2); eGFR > 60.00
[2024-08-13 08:15] LABS: PSA, Total - Diagnostic 2.25 ng/ml (0.0-4.0); TSH 2.24 uIU/ml (0.47-4.68)
== END ==
LOC: REG 06:15
PROVIDERS: ATTENDING PHYSICIAN Internal Medicine Hematology & Oncology; FAMILY PHYSICIAN Internal Medicine
DX: C61 Malignant neoplasm of prostate (principal); C79.51 Secondary malignant neoplasm of bone; I82.4Z1 Acute embolism and thrombosis of unspecified deep veins of right distal lower extremity; R60.0 Localized edema; K59.00 Constipation, unspecified; E83.51 Hypocalcemia; C7A.1 Malignant poorly differentiated neuroendocrine tumors
CPT/HCPCS: 80053; 84153; 84443; 85025

== ENCOUNTER → 2024-08-20 06:33 | Outpatient (REF) | payer OTHER, SELFPAY ==
[2024-08-20 07:48] LABS: Hemoglobin 11.7 g/dL (13.0-18.0); Mean Corp Hgb Conc. 33.4 g/dL (33.0-37.0); Mean Corpuscular Volume 92.8 fL (80.0-94.0); Mean Platelet Volume 9.9 fL (7.4-10.4); Platelet Count 265 10^3/uL (130-400); Red Blood Cell Count 3.77 10^6/uL (4.70-6.10); Red Cell Dist. Width 16.5 % (11.5-14.5); White Blood Cell Count 35.8 10^3/uL (4.8-10.8)
[2024-08-20 11:59] LABS: % Basophils 0.1 % (0-2); % Eosinophils 0.1 % (0-6); % Immature Granulocytes 14.9 % (0-0.5); % Monocytes 0.9 % (1.7-9.3); Absolute Immature Granulocytes 5.4 10^3/uL (0-0.05); Absolute Lymphocytes 1.1 10^3/uL (1.2-3.4); Absolute Monocytes 0.3 10^3/uL (0.1-0.6); Nucleated Red Blood Cells % 0 % (-)
== END ==
LOC: REG 06:33
PROVIDERS: ATTENDING PHYSICIAN Internal Medicine Hematology & Oncology; FAMILY PHYSICIAN Internal Medicine
DX: C61 Malignant neoplasm of prostate (principal); C79.51 Secondary malignant neoplasm of bone; I82.4Z1 Acute embolism and thrombosis of unspecified deep veins of right distal lower extremity; R60.0 Localized edema; K59.00 Constipation, unspecified; E83.51 Hypocalcemia; C7A.1 Malignant poorly differentiated neuroendocrine tumors
CPT/HCPCS: 36415; 85025

== ENCOUNTER → 2024-08-22 09:19 | Outpatient (REF) | payer OTHER, SELFPAY ==
[2024-08-22 16:35] LABS: Urine Albumin Negative (Neg - Trace); Urine Bilirubin Negative (Negative); Urine Character Clear (Clear); Urine Color Yellow; Urine Glucose Negative (Negative); Urine Ketone Negative (Negative); Urine Leukocyte Negative (Negative); Urine Nitrite Negative (Negative); Urine Occult Blood Negative (Negative); Urine Urobilinogen Negative (Neg - 1+)
== END ==
LOC: CLAB 09:19
PROVIDERS: ATTENDING PHYSICIAN Surgery
DX: N39.0 Urinary tract infection, site not specified (principal)
CPT/HCPCS: 81003; 87086

== ENCOUNTER → 2024-08-27 06:33 | Outpatient (REF) | payer OTHER, SELFPAY ==
[2024-08-27 08:43] LABS: % Basophils 0.3 % (0-2); % Eosinophils 0.2 % (0-6); % Immature Granulocytes 0.9 % (0-0.5); % Lymphocytes 18.3 % (20.5-51.1); % Neutrophils 71.3 % (42.2-75.2); Absolute Immature Granulocytes 0.1 10^3/uL (0-0.05); Absolute Lymphocytes 1.1 10^3/uL (1.2-3.4); Absolute Monocytes 0.5 10^3/uL (0.1-0.6); Absolute Neutrophils 4.1 10^3/uL (1.4-6.5); Hematocrit 31.5 % (39.0-52.0); Hemoglobin 10.6 g/dL (13.0-18.0); Mean Corp Hgb Conc. 33.7 g/dL (33.0-37.0); Mean Corpuscular Hgb 31.6 pg (27.0-31.0); Mean Platelet Volume 10.7 fL (7.4-10.4); Nucleated Red Blood Cells % 0 % (-); Platelet Count 128 10^3/uL (130-400); Red Blood Cell Count 3.35 10^6/uL (4.70-6.10); White Blood Cell Count 5.8 10^3/uL (4.8-10.8)
== END ==
LOC: REG 06:33
PROVIDERS: ATTENDING PHYSICIAN Internal Medicine Hematology & Oncology; FAMILY PHYSICIAN Internal Medicine
DX: C61 Malignant neoplasm of prostate (principal); C79.51 Secondary malignant neoplasm of bone; I82.4Z1 Acute embolism and thrombosis of unspecified deep veins of right distal lower extremity; R60.0 Localized edema; K59.00 Constipation, unspecified; E83.51 Hypocalcemia; C7A.1 Malignant poorly differentiated neuroendocrine tumors
CPT/HCPCS: 36415; 85025

== ENCOUNTER → 2024-09-03 06:22 | Outpatient (REF) | payer OTHER, SELFPAY ==
[2024-09-03 07:38] LABS: % Basophils 0.4 % (0-2); % Eosinophils 0.2 % (0-6); % Lymphocytes 12.8 % (20.5-51.1); % Monocytes 8.3 % (1.7-9.3); % Neutrophils 76.3 % (42.2-75.2); Absolute Immature Granulocytes 0.2 10^3/uL (0-0.05); Absolute Lymphocytes 1.1 10^3/uL (1.2-3.4); Absolute Monocytes 0.7 10^3/uL (0.1-0.6); Absolute Neutrophils 6.8 10^3/uL (1.4-6.5); Hematocrit 33.7 % (39.0-52.0); Hemoglobin 11.1 g/dL (13.0-18.0); Mean Corp Hgb Conc. 32.9 g/dL (33.0-37.0); Mean Corpuscular Hgb 31.4 pg (27.0-31.0); Mean Corpuscular Volume 95.5 fL (80.0-94.0); Mean Platelet Volume 9.6 fL (7.4-10.4); Nucleated Red Blood Cells % 0 % (-); Platelet Count 224 10^3/uL (130-400); Red Blood Cell Count 3.53 10^6/uL (4.70-6.10); Red Cell Dist. Width 17.5 % (11.5-14.5); White Blood Cell Count 8.9 10^3/uL (4.8-10.8)
[2024-09-03 08:08] LABS: ALT (SGPT) 18 U/L (0-50); AST (SGOT) 23 U/L (17-59); Albumin 4.5 g/dl (3.5-5.0); Alkaline Phosphatase 94 U/L (38-126); Blood Urea Nitrogen 17 mg/dl (9-20); Calcium 9.2 mg/dl (8.4-10.2); Carbon Dioxide 26 mmol/L (22-30); Chloride 108 mmol/L (98-107); Glucose 102 mg/dl (70-99); Potassium 4.7 mmol/L (3.5-5.1); Sodium 141 mmol/L (135-145); Total Bilirubin 0.5 mg/dl (0.2-1.3); Total Protein 6.9 g/dl (6.3-8.2)
[2024-09-03 08:24] LABS: eGFR > 60.00
[2024-09-03 08:37] LABS: PSA, Total - Diagnostic 3.42 ng/ml (0.0-4.0); TSH 1.69 uIU/ml (0.47-4.68)
== END ==
LOC: REG 06:22
PROVIDERS: ATTENDING PHYSICIAN Internal Medicine Hematology & Oncology; FAMILY PHYSICIAN Internal Medicine
DX: C61 Malignant neoplasm of prostate (principal); C79.51 Secondary malignant neoplasm of bone; I82.4Z1 Acute embolism and thrombosis of unspecified deep veins of right distal lower extremity; R60.0 Localized edema; K59.00 Constipation, unspecified; E83.51 Hypocalcemia; C7A.1 Malignant poorly differentiated neuroendocrine tumors
CPT/HCPCS: 36415; 80053; 84153; 84443; 85025

== ENCOUNTER → 2024-09-10 06:20 | Outpatient (REF) | payer OTHER, SELFPAY ==
[2024-09-10 08:03] LABS: Hematocrit 32.1 % (39.0-52.0); Hemoglobin 10.7 g/dL (13.0-18.0); Mean Corp Hgb Conc. 33.3 g/dL (33.0-37.0); Mean Corpuscular Volume 96.1 fL (80.0-94.0); Mean Platelet Volume 10.1 fL (7.4-10.4); Platelet Count 266 10^3/uL (130-400); Red Blood Cell Count 3.34 10^6/uL (4.70-6.10); Red Cell Dist. Width 16.9 % (11.5-14.5); White Blood Cell Count 38.3 10^3/uL (4.8-10.8)
[2024-09-10 09:50] LABS: Absolute Neutrophils -Man Diff 35.6 10^3/uL (1.4-6.5); Band Neutrophils 1 % (0-3); Lymphocytes 5 % (20-51); Monocytes 2 % (2-9); Platelets Checked Yes; Segmented Neutrophils 92 % (42-75)
[2024-09-10 09:51] LABS: Normal RBC Morphology Yes; Total Cells Counted 100
== END ==
LOC: REG 06:20
PROVIDERS: ATTENDING PHYSICIAN Internal Medicine Hematology & Oncology; FAMILY PHYSICIAN Internal Medicine
DX: C61 Malignant neoplasm of prostate (principal); C79.51 Secondary malignant neoplasm of bone; I82.4Z1 Acute embolism and thrombosis of unspecified deep veins of right distal lower extremity; R60.0 Localized edema; K59.00 Constipation, unspecified; E83.51 Hypocalcemia; C7A.1 Malignant poorly differentiated neuroendocrine tumors
CPT/HCPCS: 36415; 85025

== ENCOUNTER → 2024-09-18 06:25 | Outpatient (REF) | payer OTHER, SELFPAY ==
[2024-09-18 07:25] LABS: % Basophils 0.5 % (0-2); % Eosinophils 0.3 % (0-6); % Immature Granulocytes 0.8 % (0-0.5); % Lymphocytes 16.3 % (20.5-51.1); % Monocytes 8.2 % (1.7-9.3); % Neutrophils 73.9 % (42.2-75.2); Absolute Immature Granulocytes 0.1 10^3/uL (0-0.05); Absolute Monocytes 0.5 10^3/uL (0.1-0.6); Absolute Neutrophils 4.5 10^3/uL (1.4-6.5); Hemoglobin 10.2 g/dL (13.0-18.0); Mean Corp Hgb Conc. 32.9 g/dL (33.0-37.0); Mean Corpuscular Volume 97.2 fL (80.0-94.0); Nucleated Red Blood Cells % 0 % (-); Platelet Count 133 10^3/uL (130-400); Red Blood Cell Count 3.19 10^6/uL (4.70-6.10); Red Cell Dist. Width 17.2 % (11.5-14.5); White Blood Cell Count 6.1 10^3/uL (4.8-10.8)
== END ==
LOC: REG 06:25
PROVIDERS: ATTENDING PHYSICIAN Internal Medicine Hematology & Oncology; FAMILY PHYSICIAN Internal Medicine
DX: C61 Malignant neoplasm of prostate (principal); C79.51 Secondary malignant neoplasm of bone; I82.4Z1 Acute embolism and thrombosis of unspecified deep veins of right distal lower extremity; R60.0 Localized edema; K59.00 Constipation, unspecified; E83.51 Hypocalcemia; C7A.1 Malignant poorly differentiated neuroendocrine tumors
CPT/HCPCS: 36415; 85025

== ENCOUNTER → 2024-09-24 06:16 | Outpatient (REF) | payer OTHER, SELFPAY ==
[2024-09-24 06:49] LABS: % Basophils 0.5 % (0-2); % Eosinophils 0.4 % (0-6); % Immature Granulocytes 1.2 % (0-0.5); % Lymphocytes 12.5 % (20.5-51.1); % Monocytes 8.1 % (1.7-9.3); % Neutrophils 77.3 % (42.2-75.2); Absolute Immature Granulocytes 0.1 10^3/uL (0-0.05); Absolute Lymphocytes 1.1 10^3/uL (1.2-3.4); Absolute Monocytes 0.7 10^3/uL (0.1-0.6); Absolute Neutrophils 6.6 10^3/uL (1.4-6.5); Hematocrit 32.4 % (39.0-52.0); Hemoglobin 10.6 g/dL (13.0-18.0); Mean Corp Hgb Conc. 32.7 g/dL (33.0-37.0); Mean Corpuscular Hgb 31.8 pg (27.0-31.0); Mean Corpuscular Volume 97.3 fL (80.0-94.0); Mean Platelet Volume 9.3 fL (7.4-10.4); Nucleated Red Blood Cells % 0 % (-); Platelet Count 277 10^3/uL (130-400); Red Blood Cell Count 3.33 10^6/uL (4.70-6.10); Red Cell Dist. Width 17.3 % (11.5-14.5); White Blood Cell Count 8.5 10^3/uL (4.8-10.8)
[2024-09-24 07:19] LABS: ALT (SGPT) 18 U/L (0-50); AST (SGOT) 23 U/L (17-59); Albumin 4.4 g/dl (3.5-5.0); Alkaline Phosphatase 109 U/L (38-126); Blood Urea Nitrogen 14 mg/dl (9-20); Calcium 9.7 mg/dl (8.4-10.2); Carbon Dioxide 24 mmol/L (22-30); Chloride 111 mmol/L (98-107); Glucose 111 mg/dl (70-99); Potassium 4.6 mmol/L (3.5-5.1); Sodium 143 mmol/L (135-145); Total Bilirubin 0.4 mg/dl (0.2-1.3); eGFR > 60.00
[2024-09-24 07:45] LABS: PSA, Total - Diagnostic 6.35 ng/ml (0.0-4.0); TSH 1.96 uIU/ml (0.47-4.68)
== END ==
LOC: REG 06:16
PROVIDERS: ATTENDING PHYSICIAN Internal Medicine Hematology & Oncology; FAMILY PHYSICIAN Internal Medicine
DX: C61 Malignant neoplasm of prostate (principal); C79.51 Secondary malignant neoplasm of bone; I82.4Z1 Acute embolism and thrombosis of unspecified deep veins of right distal lower extremity; R60.0 Localized edema; K59.00 Constipation, unspecified; E83.51 Hypocalcemia; C7A.1 Malignant poorly differentiated neuroendocrine tumors
CPT/HCPCS: 80053; 84153; 84443; 85025

== ENCOUNTER → 2024-09-27 13:34 | Outpatient (REF) | payer OTHER, SELFPAY ==
[2024-09-27 14:40] LABS: Urine Albumin 1+ (Neg - Trace); Urine Bilirubin Negative (Negative); Urine Character Clear (Clear); Urine Color Yellow; Urine Glucose Negative (Negative); Urine Ketone Negative (Negative); Urine Leukocyte Negative (Negative); Urine Nitrite Negative (Negative); Urine Occult Blood 4+ (Negative); Urine Urobilinogen Negative (Neg - 1+)
[2024-09-27 14:51] LABS: Urine Squamous Cell 0-2 /LPF (Few)
[2024-09-27 14:52] LABS: Urine Red Blood Cell 26-30 /HPF (0-2); Urine White Cell 0-2 /HPF (0-5)
== END ==
LOC: REG 13:34
PROVIDERS: ATTENDING PHYSICIAN Nurse Practitioner Adult Health; FAMILY PHYSICIAN Internal Medicine
DX: C61 Malignant neoplasm of prostate (principal); C76.51 Malignant neoplasm of right lower limb; I82.4Z1 Acute embolism and thrombosis of unspecified deep veins of right distal lower extremity; R60.0 Localized edema; K59.00 Constipation, unspecified; E83.51 Hypocalcemia; C7A.1 Malignant poorly differentiated neuroendocrine tumors; R31.0 Gross hematuria; R10.0 Acute abdomen
CPT/HCPCS: 81003; 81015; 87086

== ENCOUNTER → 2024-10-01 06:26 | Outpatient (REF) | payer OTHER, SELFPAY ==
[2024-10-01 07:15] LABS: % Basophils 0.4 % (0-2); % Eosinophils 0.3 % (0-6); % Immature Granulocytes 0.5 % (0-0.5); % Lymphocytes 12.9 % (20.5-51.1); % Monocytes 10.2 % (1.7-9.3); % Neutrophils 75.7 % (42.2-75.2); Absolute Monocytes 0.8 10^3/uL (0.1-0.6); Absolute Neutrophils 5.7 10^3/uL (1.4-6.5); Hematocrit 32.9 % (39.0-52.0); Hemoglobin 11.1 g/dL (13.0-18.0); Mean Corp Hgb Conc. 33.7 g/dL (33.0-37.0); Mean Corpuscular Hgb 31.9 pg (27.0-31.0); Mean Corpuscular Volume 94.5 fL (80.0-94.0); Mean Platelet Volume 9.6 fL (7.4-10.4); Nucleated Red Blood Cells % 0 % (-); Platelet Count 276 10^3/uL (130-400); Red Blood Cell Count 3.48 10^6/uL (4.70-6.10); Red Cell Dist. Width 15.9 % (11.5-14.5); White Blood Cell Count 7.6 10^3/uL (4.8-10.8)
[2024-10-01 08:18] LABS: ALT (SGPT) 24 U/L (0-50); AST (SGOT) 22 U/L (17-59); Albumin 4.4 g/dl (3.5-5.0); Alkaline Phosphatase 101 U/L (38-126); Blood Urea Nitrogen 16 mg/dl (9-20); Calcium 9.4 mg/dl (8.4-10.2); Carbon Dioxide 24 mmol/L (22-30); Chloride 108 mmol/L (98-107); Glucose 101 mg/dl (70-99); Potassium 4.5 mmol/L (3.5-5.1); Sodium 141 mmol/L (135-145); Total Bilirubin 0.5 mg/dl (0.2-1.3); Total Protein 7.1 g/dl (6.3-8.2); eGFR > 60.00
[2024-10-01 08:37] LABS: PSA, Total - Diagnostic 6.81 ng/ml (0.0-4.0); TSH 1.65 uIU/ml (0.47-4.68)
== END ==
LOC: REG 06:26
PROVIDERS: ATTENDING PHYSICIAN Internal Medicine Hematology & Oncology; FAMILY PHYSICIAN Internal Medicine
DX: C61 Malignant neoplasm of prostate (principal); C79.51 Secondary malignant neoplasm of bone; I82.4Z1 Acute embolism and thrombosis of unspecified deep veins of right distal lower extremity; R60.0 Localized edema; K59.00 Constipation, unspecified; E83.51 Hypocalcemia; C7A.1 Malignant poorly differentiated neuroendocrine tumors
CPT/HCPCS: 36415; 80053; 84153; 84443; 85025

== ENCOUNTER → 2024-10-08 06:18 | Outpatient (REF) | payer OTHER, SELFPAY ==
[2024-10-08 07:18] LABS: % Eosinophils 0.3 % (0-6); % Lymphocytes 33.6 % (20.5-51.1); % Monocytes 5.1 % (1.7-9.3); Absolute Monocytes 0.2 10^3/uL (0.1-0.6); Absolute Neutrophils 1.7 10^3/uL (1.4-6.5); Hematocrit 32.2 % (39.0-52.0); Hemoglobin 10.6 g/dL (13.0-18.0); Mean Corp Hgb Conc. 32.9 g/dL (33.0-37.0); Mean Corpuscular Hgb 31.4 pg (27.0-31.0); Mean Corpuscular Volume 95.3 fL (80.0-94.0); Mean Platelet Volume 10.4 fL (7.4-10.4); Nucleated Red Blood Cells % 0 % (-); Platelet Count 229 10^3/uL (130-400); Red Blood Cell Count 3.38 10^6/uL (4.70-6.10); Red Cell Dist. Width 14.7 % (11.5-14.5); White Blood Cell Count 2.9 10^3/uL (4.8-10.8)
== END ==
LOC: REG 06:18
PROVIDERS: ATTENDING PHYSICIAN Internal Medicine Hematology & Oncology; FAMILY PHYSICIAN Internal Medicine
DX: C61 Malignant neoplasm of prostate (principal); C79.51 Secondary malignant neoplasm of bone; I82.4Z1 Acute embolism and thrombosis of unspecified deep veins of right distal lower extremity; R60.0 Localized edema; K59.00 Constipation, unspecified; E83.51 Hypocalcemia; C7A.1 Malignant poorly differentiated neuroendocrine tumors
CPT/HCPCS: 36415; 85025

== ENCOUNTER → 2024-10-15 06:29 | Outpatient (REF) | payer OTHER, SELFPAY ==
[2024-10-15 07:59] LABS: Hematocrit 35.4 % (39.0-52.0); Hemoglobin 11.4 g/dL (13.0-18.0); Mean Corp Hgb Conc. 32.2 g/dL (33.0-37.0); Mean Corpuscular Hgb 31.1 pg (27.0-31.0); Mean Corpuscular Volume 96.5 fL (80.0-94.0); Mean Platelet Volume 10.1 fL (7.4-10.4); Platelet Count 219 10^3/uL (130-400); Red Blood Cell Count 3.67 10^6/uL (4.70-6.10); Red Cell Dist. Width 14.6 % (11.5-14.5)
[2024-10-15 08:57] LABS: Absolute Neutrophils -Man Diff 1.2 10^3/uL (1.4-6.5); Band Neutrophils 0 % (0-3); Lymphocytes 36 % (20-51); Monocytes 20 % (2-9); Myelocytes 1 % (-); Normal RBC Morphology Yes; Platelets Checked Yes; Segmented Neutrophils 43 % (42-75); Total Cells Counted 100
== END ==
LOC: REG 06:29
PROVIDERS: ATTENDING PHYSICIAN Internal Medicine Hematology & Oncology; FAMILY PHYSICIAN Internal Medicine
DX: C61 Malignant neoplasm of prostate (principal); C79.51 Secondary malignant neoplasm of bone; I82.4Z1 Acute embolism and thrombosis of unspecified deep veins of right distal lower extremity; R60.0 Localized edema; K59.00 Constipation, unspecified; E83.51 Hypocalcemia; C7A.1 Malignant poorly differentiated neuroendocrine tumors
CPT/HCPCS: 36415; 85025

== ENCOUNTER 2024-10-19 06:16 | Day surgery (SDC) | payer OTHER, SELFPAY ==
[2024-10-12 13:46] VITALS: BMI 29.6
[2024-10-19] VITALS (9 sets, daily range): BP systolic 122–156; BP diastolic 68–93; BMI 29.6
[2024-10-19] MEDS: NORMOSOL-R/PLASMALYTE-A 1000 IV (13:58)
--- NOTE | 2024-10-19 16:45 | W.IMMPOSTOP ---
Surgical Immed Post Op Note
-
Primary Surgeon: Norbert
Pre-op Diagnosis: metastatic neuroendocrine prostate cancer, WOOD
Post-op Diagnosis: Same
Procedure Performed: TURBT, TUVP
Anesthesia Type: LMA
Specimen / Cultures: right lateral bladder wall tumor (suspected prostate cancer deposit), prostate shavings
Estimated Blood Loss: Negligible
Drains: 22Fr 3-way catheter
Complications: None
Operative Findings: Right lateral wall tumor resected completely w/ wide fulguration of base. Patent vesicoprostatic junction and prostatic urethral channel after button vaporization.
Admit for observation o/n w/ CBI.
Spouse updated post-op via telephone.
[2024-10-19] MEDS: DETROL LA 4 MG PO (17:10)
--- NOTE | 2024-10-19 17:50 | PTCARENOTE ---
Pt arrived to floor in bed from PACU; IVF infusing into R subq Port; [address] with CBI running at a moderate flow - clear urine in singh. Denies pain; Denies nausea; AAO x 3; Lungs CTA; Reg apical; Skin C/D/I; Oriented to room,
call shankar within reach. Will continue to monitor and assess.
[2024-10-19] MEDS: DELTASONE 5 MG PO (20:26)
[2024-10-19] MEDS: TYLENOL 650 MG PO (20:26)
[2024-10-19] MEDS: NEURONTIN 300 MG PO (22:07)
[2024-10-19] MEDS: FLOMAX 0.4 MG PO (22:07)
[2024-10-19] MEDS: PROSCAR 5 MG PO (22:08)
[2024-10-20] MEDS: FLUSH (NSS) 1 FLUSH IV (00:16)
[2024-10-20 03:15] VITALS: BP 127/64
[2024-10-20 06:20] LABS: % Basophils 0.1 % (0-2); % Immature Granulocytes 0.4 % (0-0.5); % Lymphocytes 11.5 % (20.5-51.1); % Monocytes 6.7 % (1.7-9.3); % Neutrophils 81.3 % (42.2-75.2); Absolute Lymphocytes 1.1 10^3/uL (1.2-3.4); Absolute Monocytes 0.6 10^3/uL (0.1-0.6); Absolute Neutrophils 7.8 10^3/uL (1.4-6.5); Hematocrit 33.9 % (39.0-52.0); Hemoglobin 11.3 g/dL (13.0-18.0); Mean Corp Hgb Conc. 33.3 g/dL (33.0-37.0); Mean Corpuscular Hgb 30.7 pg (27.0-31.0); Mean Corpuscular Volume 92.1 fL (80.0-94.0); Mean Platelet Volume 9.8 fL (7.4-10.4); Nucleated Red Blood Cells % 0 % (-); Platelet Count 212 10^3/uL (130-400); Red Blood Cell Count 3.68 10^6/uL (4.70-6.10); Red Cell Dist. Width 14.6 % (11.5-14.5); White Blood Cell Count 9.6 10^3/uL (4.8-10.8)
[2024-10-20 06:43] LABS: Blood Urea Nitrogen 16 mg/dl (9-20); Calcium 9.1 mg/dl (8.4-10.2); Carbon Dioxide 25 mmol/L (22-30); Chloride 108 mmol/L (98-107); Estimated Creatinine Clearance > 125 ml/min; Glucose 110 mg/dl (70-99); Potassium 4.2 mmol/L (3.5-5.1); Sodium 140 mmol/L (135-145); eGFR > 60.00
[2024-10-20 07:20] VITALS: BP 116/65
[2024-10-20] MEDS: CLARITIN 10 MG PO (07:57)
[2024-10-20] MEDS: DELTASONE 5 MG PO (07:57)
--- NOTE | 2024-10-20 09:10 | W.PN.URO.CBU ---
Today's Communication / Plan
-
TOV successful - voiding pierre urine w/o clots
Post-op discharge instructions reviewed w/ pt and spouse
eRx sent for antibiotics + pyridium
Discharge home
Assessment / Plan
-
WOOD
Metastatic neuroendocrine prostate cancer
10/19: s/p TURBT (suspected prostate cancer deposit) + TUVP
Diagnosis
-
Date of Service: October 20, 2024
-
Patient Diagnosis:
WOOD
Metastatic neuroendocrine prostate cancer
Post Op Day:
10/19: s/p TURBT (suspected prostate cancer deposit) + TUVP
Subjective
-
Meza removed @0600 - patient voiding w/o issues.
Minimal dysuria.
Urine output pierre w/o clots.
Objective
-
Vital Signs
Temp Pulse Resp BP Pulse Ox
98.1 F 56 16 116/65 100
10/20/24 07:20 10/20/24 07:20 10/20/24 07:20 10/20/24 07:20 10/20/24 07:20
Intake and Output
10/19/24 10/20/24 10/21/24
06:59 06:59 06:59
Intake Total 300 / 300
Output Total 800 / 800
Balance -500 / -500
Intake:
IV fluids (Total) 300 / 300
normosol 100 / 100
Output:
True Urine Output from CBI 800 / 800
Laboratory Results
10/20/24 05:56
10/20/24 05:56
Physical Exam
-
General - well developed, well nourished, no acute distress
Abdomen - soft, non-tender, non-distended
Genitalia - normal
Neuro - AOx3, no motor deficits
Extremities - no clubbing, no cyanosis, no edema
Care Review
Data Reviewed
Discussed with: Nursing and Family
Total Time Spent with Patient (in minutes): 35
--- NOTE | 2024-10-20 10:07 | W.DS.TRANS ---
DC Summary - [employer]
-
Discharge Instructions:
Sleep Apnea Risk Intermediate
Discharge Diagnosis/Procedures metastatic prostate cancer s/p TURBT + TUVP
Diet Regular
Activity No strenuous activity
Additional Activity No strenuous exercise, lifting >20 lbs, or
sexual activity x7 days
Driving Restrictions No driving for 24 hours
Bathing Restrictions None
Blood Work not applicable
Wound Care not applicable
Instructions:
Stand-Alone Forms:
Changes to Home Medications: No
Discharge Medications:
DC Medications w/original date entered in [employer]
gabapentin 100 mg capsule 300 mg PO HS 08/29/23
tamsulosin 0.4 mg capsule 0.4 mg PO HS 08/29/23
acetaminophen 325 mg tablet (Tylenol) 650 mg PO QID PRN pain 10/11/24
apixaban 2.5 mg tablet (Eliquis) 2.5 mg PO BID 10/11/24
finasteride 5 mg tablet 5 mg PO HS 10/11/24
loratadine 10 mg tablet 10 mg PO DAILY 10/11/24
prednisone 5 mg tablet 5 mg PO BID 10/11/24
Home Medication Changes
Pending Results: Yes
Additional Pending Results:
surgical pathology
--- NOTE | 2024-10-20 10:52 | CM ---
CM met with pt and spouse bedside
Discharge order noted
Spouse available for support at home
No dc needs noted
Discharge Disposition- home, no needs, spouse transport
[2024-10-20 10:53] VITALS: BP 129/79
== END 2024-10-20 11:05 | disposition home or self-care (01) ==
LOC: SDS 06:16
PROVIDERS: ATTENDING PHYSICIAN Surgery; FAMILY PHYSICIAN Internal Medicine
DX: C61 Malignant neoplasm of prostate (principal); C79.11 Secondary malignant neoplasm of bladder; C7A.8 Other malignant neuroendocrine tumors
CPT/HCPCS: 52601; 36415; 80048; 85025; 88305; 88307; 88341; 88342; 93005

== ENCOUNTER → 2024-10-22 06:26 | Outpatient (REF) | payer OTHER, SELFPAY ==
[2024-10-22 07:15] LABS: % Basophils 0.5 % (0-2); % Eosinophils 0.3 % (0-6); % Immature Granulocytes 0.6 % (0-0.5); % Lymphocytes 14.6 % (20.5-51.1); % Monocytes 6.7 % (1.7-9.3); % Neutrophils 77.3 % (42.2-75.2); Absolute Basophils 0.1 10^3/uL (0-0.2); Absolute Immature Granulocytes 0.1 10^3/uL (0-0.05); Absolute Lymphocytes 1.5 10^3/uL (1.2-3.4); Absolute Monocytes 0.7 10^3/uL (0.1-0.6); Absolute Neutrophils 7.7 10^3/uL (1.4-6.5); Hematocrit 37.6 % (39.0-52.0); Hemoglobin 12.3 g/dL (13.0-18.0); Mean Corp Hgb Conc. 32.7 g/dL (33.0-37.0); Mean Corpuscular Hgb 30.8 pg (27.0-31.0); Nucleated Red Blood Cells % 0 % (-); Platelet Count 219 10^3/uL (130-400); Red Cell Dist. Width 14.4 % (11.5-14.5)
[2024-10-22 07:50] LABS: ALT (SGPT) 27 U/L (0-50); AST (SGOT) 22 U/L (17-59); Albumin 4.6 g/dl (3.5-5.0); Alkaline Phosphatase 90 U/L (38-126); Blood Urea Nitrogen 20 mg/dl (9-20); Calcium 9.7 mg/dl (8.4-10.2); Carbon Dioxide 21 mmol/L (22-30); Chloride 111 mmol/L (98-107); Glucose 96 mg/dl (70-99); Potassium 4.3 mmol/L (3.5-5.1); Sodium 140 mmol/L (135-145); Total Bilirubin 0.4 mg/dl (0.2-1.3); Total Protein 7.2 g/dl (6.3-8.2); eGFR > 60.00
[2024-10-22 08:14] LABS: TSH 0.92 uIU/ml (0.47-4.68)
== END ==
LOC: REG 06:26
PROVIDERS: ATTENDING PHYSICIAN Internal Medicine Hematology & Oncology; FAMILY PHYSICIAN Internal Medicine
DX: C61 Malignant neoplasm of prostate (principal); C79.51 Secondary malignant neoplasm of bone; I82.4Z1 Acute embolism and thrombosis of unspecified deep veins of right distal lower extremity; R60.0 Localized edema; K59.00 Constipation, unspecified; E83.51 Hypocalcemia; C7A.1 Malignant poorly differentiated neuroendocrine tumors
CPT/HCPCS: 36415; 80053; 84153; 84443; 85025

== ENCOUNTER → 2024-10-29 06:18 | Outpatient (REF) | payer OTHER, SELFPAY ==
[2024-10-29 07:41] LABS: Hematocrit 34.6 % (39.0-52.0); Hemoglobin 11.1 g/dL (13.0-18.0); Mean Corp Hgb Conc. 32.1 g/dL (33.0-37.0); Mean Corpuscular Volume 94.8 fL (80.0-94.0); Nucleated Red Blood Cells % 0 % (-); Platelet Count 156 10^3/uL (130-400); Red Cell Dist. Width 14.2 % (11.5-14.5)
== END ==
LOC: REG 06:18
PROVIDERS: ATTENDING PHYSICIAN Internal Medicine Hematology & Oncology; FAMILY PHYSICIAN Internal Medicine
DX: C61 Malignant neoplasm of prostate (principal); C79.51 Secondary malignant neoplasm of bone; I82.4Z1 Acute embolism and thrombosis of unspecified deep veins of right distal lower extremity; R60.0 Localized edema; K59.00 Constipation, unspecified; E83.51 Hypocalcemia; C7A.1 Malignant poorly differentiated neuroendocrine tumors
CPT/HCPCS: 36415; 85025

== ENCOUNTER → 2024-11-05 06:23 | Outpatient (REF) | payer OTHER, SELFPAY ==
[2024-11-05 07:40] LABS: Hematocrit 34.0 % (39.0-52.0); Hemoglobin 10.7 g/dL (13.0-18.0); Mean Corp Hgb Conc. 31.5 g/dL (33.0-37.0); Mean Corpuscular Volume 94.2 fL (80.0-94.0); Platelet Count 194 10^3/uL (130-400); Red Cell Dist. Width 14.0 % (11.5-14.5)
[2024-11-05 08:33] LABS: Absolute Neutrophils -Man Diff 1.0 10^3/uL (1.4-6.5); Normal RBC Morphology Yes; Platelets Checked Yes; Total Cells Counted 100
== END ==
LOC: REG 06:23
PROVIDERS: ATTENDING PHYSICIAN Internal Medicine Hematology & Oncology; FAMILY PHYSICIAN Internal Medicine
DX: C61 Malignant neoplasm of prostate (principal); C79.51 Secondary malignant neoplasm of bone; I82.4Z1 Acute embolism and thrombosis of unspecified deep veins of right distal lower extremity; R60.0 Localized edema; K59.00 Constipation, unspecified; E83.51 Hypocalcemia; C7A.1 Malignant poorly differentiated neuroendocrine tumors
CPT/HCPCS: 36415; 85025

== ENCOUNTER → 2024-11-12 06:19 | Outpatient (REF) | payer OTHER, SELFPAY ==
[2024-11-12 07:25] LABS: Hematocrit 38.3 % (39.0-52.0); Hemoglobin 12.1 g/dL (13.0-18.0); Mean Corp Hgb Conc. 31.6 g/dL (33.0-37.0); Mean Corpuscular Volume 93.0 fL (80.0-94.0); Nucleated Red Blood Cells % 0 % (-); Platelet Count 227 10^3/uL (130-400); Red Cell Dist. Width 14.2 % (11.5-14.5)
[2024-11-12 07:55] LABS: ALT (SGPT) 23 U/L (0-50); AST (SGOT) 22 U/L (17-59); Albumin 4.5 g/dl (3.5-5.0); Alkaline Phosphatase 69 U/L (38-126); Blood Urea Nitrogen 21 mg/dl (9-20); Calcium 9.8 mg/dl (8.4-10.2); Carbon Dioxide 25 mmol/L (22-30); Chloride 109 mmol/L (98-107); Glucose 99 mg/dl (70-99); Potassium 4.4 mmol/L (3.5-5.1); Sodium 140 mmol/L (135-145); Total Protein 7.1 g/dl (6.3-8.2); eGFR > 60.00
[2024-11-12 08:40] LABS: PSA, Total - Screen 15.50 ng/ml (0.0-4.0); TSH 1.72 uIU/ml (0.47-4.68)
[2024-11-12 17:29] LABS: Urine Character Slightly Cloudy (Clear)
[2024-11-12 19:30] LABS: Urine Squamous Cell 0-2 /LPF (Few); Urine White Cell 16-20 /HPF (0-5)
== END ==
LOC: REG 06:19
PROVIDERS: ATTENDING PHYSICIAN Internal Medicine Hematology & Oncology; FAMILY PHYSICIAN Internal Medicine
DX: C61 Malignant neoplasm of prostate (principal); C76.51 Malignant neoplasm of right lower limb; I82.4Z1 Acute embolism and thrombosis of unspecified deep veins of right distal lower extremity; R60.0 Localized edema; K59.00 Constipation, unspecified; E83.51 Hypocalcemia; C7A.1 Malignant poorly differentiated neuroendocrine tumors; R35.0 Frequency of micturition
CPT/HCPCS: 36415; 80053; 81003; 81015; 84443; 85025; 87077; 87086; 87186; G0103

== ENCOUNTER → 2024-11-19 06:24 | Outpatient (REF) | payer OTHER, SELFPAY ==
[2024-11-19 07:34] LABS: Hematocrit 36.4 % (39.0-52.0); Hemoglobin 11.3 g/dL (13.0-18.0); Mean Corp Hgb Conc. 31.0 g/dL (33.0-37.0); Mean Corpuscular Volume 92.2 fL (80.0-94.0); Nucleated Red Blood Cells % 0 % (-); Platelet Count 176 10^3/uL (130-400); Red Cell Dist. Width 14.2 % (11.5-14.5)
== END ==
LOC: REG 06:24
PROVIDERS: ATTENDING PHYSICIAN Internal Medicine Hematology & Oncology; FAMILY PHYSICIAN Internal Medicine
DX: C61 Malignant neoplasm of prostate (principal); C79.51 Secondary malignant neoplasm of bone; I82.4Z1 Acute embolism and thrombosis of unspecified deep veins of right distal lower extremity; R60.0 Localized edema; K59.00 Constipation, unspecified; E83.51 Hypocalcemia; C7A.1 Malignant poorly differentiated neuroendocrine tumors
CPT/HCPCS: 36415; 85025

== ENCOUNTER → 2024-11-26 06:20 | Outpatient (REF) | payer OTHER, SELFPAY ==
[2024-11-26 08:18] LABS: Hematocrit 36.4 % (39.0-52.0); Hemoglobin 11.3 g/dL (13.0-18.0); Mean Corp Hgb Conc. 31.0 g/dL (33.0-37.0); Mean Corpuscular Volume 91.5 fL (80.0-94.0); Platelet Count 231 10^3/uL (130-400); Red Cell Dist. Width 14.5 % (11.5-14.5)
[2024-11-26 08:56] LABS: Absolute Neutrophils -Man Diff 1.0 10^3/uL (1.4-6.5)
[2024-11-26 08:58] LABS: Anisocytosis 1+; Hypochromasia 1+; Normal RBC Morphology No; Ovalocytes 1+; Platelets Checked Yes; Polychromasia 1+; Tear Drop Red Blood Cells FEW; Total Cells Counted 100
== END ==
LOC: REG 06:20
PROVIDERS: ATTENDING PHYSICIAN Internal Medicine Hematology & Oncology; FAMILY PHYSICIAN Internal Medicine
DX: C61 Malignant neoplasm of prostate (principal); C79.51 Secondary malignant neoplasm of bone; I82.4Z1 Acute embolism and thrombosis of unspecified deep veins of right distal lower extremity; R60.0 Localized edema; K59.00 Constipation, unspecified; E83.51 Hypocalcemia; C7A.1 Malignant poorly differentiated neuroendocrine tumors
CPT/HCPCS: 36415; 85025

== ENCOUNTER → 2024-12-03 06:19 | Outpatient (REF) | payer OTHER, SELFPAY ==
[2024-12-03 08:02] LABS: Hematocrit 34.4 % (39.0-52.0); Hemoglobin 10.9 g/dL (13.0-18.0); Mean Corp Hgb Conc. 31.7 g/dL (33.0-37.0); Mean Corpuscular Volume 89.6 fL (80.0-94.0); Nucleated Red Blood Cells % 0 % (-); Platelet Count 236 10^3/uL (130-400); Red Cell Dist. Width 14.6 % (11.5-14.5)
[2024-12-03 08:24] LABS: ALT (SGPT) 23 U/L (0-50); AST (SGOT) 21 U/L (17-59); Albumin 4.1 g/dl (3.5-5.0); Alkaline Phosphatase 71 U/L (38-126); Blood Urea Nitrogen 14 mg/dl (9-20); Calcium 8.8 mg/dl (8.4-10.2); Carbon Dioxide 27 mmol/L (22-30); Chloride 106 mmol/L (98-107); Glucose 90 mg/dl (70-99); Potassium 4.2 mmol/L (3.5-5.1); Sodium 140 mmol/L (135-145); Total Protein 6.4 g/dl (6.3-8.2); eGFR > 60.00
[2024-12-03 08:51] LABS: PSA, Total - Diagnostic 18.20 ng/ml (0.0-4.0); TSH 1.82 uIU/ml (0.47-4.68)
== END ==
LOC: REG 06:19
PROVIDERS: ATTENDING PHYSICIAN Internal Medicine Hematology & Oncology; FAMILY PHYSICIAN Internal Medicine
DX: C61 Malignant neoplasm of prostate (principal); C79.51 Secondary malignant neoplasm of bone; I82.4Z1 Acute embolism and thrombosis of unspecified deep veins of right distal lower extremity; R60.0 Localized edema; K59.00 Constipation, unspecified; E83.51 Hypocalcemia; C7A.1 Malignant poorly differentiated neuroendocrine tumors
CPT/HCPCS: 36415; 80053; 84153; 84443; 85025

== ENCOUNTER → 2024-12-10 06:22 | Outpatient (REF) | payer OTHER, SELFPAY ==
[2024-12-10 08:10] LABS: Hematocrit 35.6 % (39.0-52.0); Hemoglobin 11.0 g/dL (13.0-18.0); Mean Corp Hgb Conc. 30.9 g/dL (33.0-37.0); Mean Corpuscular Volume 89.0 fL (80.0-94.0); Nucleated Red Blood Cells % 0 % (-); Platelet Count 199 10^3/uL (130-400); Red Cell Dist. Width 14.6 % (11.5-14.5)
== END ==
LOC: REG 06:22
PROVIDERS: ATTENDING PHYSICIAN Internal Medicine Hematology & Oncology; FAMILY PHYSICIAN Internal Medicine
DX: C61 Malignant neoplasm of prostate (principal); C79.51 Secondary malignant neoplasm of bone; I82.4Z1 Acute embolism and thrombosis of unspecified deep veins of right distal lower extremity; R60.0 Localized edema; K59.00 Constipation, unspecified; E83.51 Hypocalcemia; C7A.1 Malignant poorly differentiated neuroendocrine tumors
CPT/HCPCS: 36415; 85025

== ENCOUNTER → 2024-12-21 06:21 | Outpatient (REF) | payer OTHER, SELFPAY ==
[2024-12-21 07:35] LABS: Hematocrit 40.2 % (39.0-52.0); Hemoglobin 12.4 g/dL (13.0-18.0); Mean Corp Hgb Conc. 30.8 g/dL (33.0-37.0); Mean Corpuscular Volume 87.4 fL (80.0-94.0); Nucleated Red Blood Cells % 0 % (-); Platelet Count 249 10^3/uL (130-400); Red Cell Dist. Width 15.0 % (11.5-14.5)
[2024-12-21 08:11] LABS: ALT (SGPT) 29 U/L (0-50); AST (SGOT) 28 U/L (17-59); Albumin 4.6 g/dl (3.5-5.0); Alkaline Phosphatase 67 U/L (38-126); Blood Urea Nitrogen 12 mg/dl (9-20); Calcium 9.3 mg/dl (8.4-10.2); Carbon Dioxide 28 mmol/L (22-30); Chloride 106 mmol/L (98-107); Glucose 91 mg/dl (70-99); Potassium 4.5 mmol/L (3.5-5.1); Sodium 140 mmol/L (135-145); Total Protein 6.9 g/dl (6.3-8.2); eGFR > 60.00
[2024-12-21 08:43] LABS: PSA, Total - Screen 18.10 ng/ml (0.0-4.0); TSH 2.15 uIU/ml (0.47-4.68)
== END ==
LOC: REG 06:21
PROVIDERS: ATTENDING PHYSICIAN Internal Medicine Hematology & Oncology; FAMILY PHYSICIAN Internal Medicine
DX: C61 Malignant neoplasm of prostate (principal); C79.51 Secondary malignant neoplasm of bone; I82.4Z1 Acute embolism and thrombosis of unspecified deep veins of right distal lower extremity; R60.0 Localized edema; K59.00 Constipation, unspecified; E83.51 Hypocalcemia; C7A.1 Malignant poorly differentiated neuroendocrine tumors
CPT/HCPCS: 36415; 80053; 84443; 85025; G0103

== ENCOUNTER → 2024-12-25 06:29 | Outpatient (REF) | payer OTHER, SELFPAY ==
[2024-12-25 07:57] LABS: Hematocrit 39.1 % (39.0-52.0); Hemoglobin 12.1 g/dL (13.0-18.0); Mean Corp Hgb Conc. 30.9 g/dL (33.0-37.0); Mean Corpuscular Volume 86.7 fL (80.0-94.0); Nucleated Red Blood Cells % 0 % (-); Platelet Count 240 10^3/uL (130-400); Red Cell Dist. Width 15.2 % (11.5-14.5)
== END ==
LOC: REG 06:29
PROVIDERS: ATTENDING PHYSICIAN Internal Medicine Hematology & Oncology; FAMILY PHYSICIAN Internal Medicine
DX: C61 Malignant neoplasm of prostate (principal); C79.51 Secondary malignant neoplasm of bone; I82.4Z1 Acute embolism and thrombosis of unspecified deep veins of right distal lower extremity; R60.0 Localized edema; K59.00 Constipation, unspecified; E83.51 Hypocalcemia; C7A.1 Malignant poorly differentiated neuroendocrine tumors
CPT/HCPCS: 36415; 85025

== ENCOUNTER → 2024-12-27 15:19 | Outpatient (REF) | payer OTHER, SELFPAY | LOC: REG 15:19 | PROVIDERS: ATTENDING PHYSICIAN Nurse Practitioner Adult Health; FAMILY PHYSICIAN Internal Medicine | DX: C61 Malignant neoplasm of prostate (principal); C79.51 Secondary malignant neoplasm of bone; I82.4Z1 Acute embolism and thrombosis of unspecified deep veins of right distal lower extremity; R60.0 Localized edema; K59.00 Constipation, unspecified; E83.51 Hypocalcemia; C7A.1 Malignant poorly differentiated neuroendocrine tumors; R31.0 Gross hematuria; R10.0 Acute abdomen | CPT/HCPCS: 72110 ==

== ENCOUNTER → 2025-01-08 06:21 | Outpatient (REF) | payer OTHER, SELFPAY ==
[2025-01-08 07:57] LABS: Hematocrit 35.7 % (39.0-52.0); Hemoglobin 11.4 g/dL (13.0-18.0); Mean Corp Hgb Conc. 31.9 g/dL (33.0-37.0); Mean Corpuscular Volume 86.2 fL (80.0-94.0); Platelet Count 239 10^3/uL (130-400); Red Cell Dist. Width 15.3 % (11.5-14.5)
[2025-01-08 11:41] LABS: Absolute Neutrophils -Man Diff 0.7 10^3/uL (1.4-6.5); Platelets Checked Yes
[2025-01-08 11:42] LABS: Normal RBC Morphology No; Total Cells Counted 100
[2025-01-08 11:44] LABS: Anisocytosis 1+; Hypochromasia 1+; Ovalocytes 1+
== END ==
LOC: REG 06:21
PROVIDERS: ATTENDING PHYSICIAN Internal Medicine Hematology & Oncology; FAMILY PHYSICIAN Internal Medicine
DX: C61 Malignant neoplasm of prostate (principal); C79.51 Secondary malignant neoplasm of bone; I82.4Z1 Acute embolism and thrombosis of unspecified deep veins of right distal lower extremity; R60.0 Localized edema; K59.00 Constipation, unspecified; E83.51 Hypocalcemia; C7A.1 Malignant poorly differentiated neuroendocrine tumors
CPT/HCPCS: 36415; 85025

== ENCOUNTER → 2025-01-15 06:20 | Outpatient (REF) | payer OTHER, SELFPAY ==
[2025-01-15 07:03] LABS: Hematocrit 37.9 % (39.0-52.0); Hemoglobin 11.7 g/dL (13.0-18.0); Mean Corp Hgb Conc. 30.9 g/dL (33.0-37.0); Mean Corpuscular Volume 83.5 fL (80.0-94.0); Nucleated Red Blood Cells % 0 % (-); Platelet Count 227 10^3/uL (130-400); Red Cell Dist. Width 15.6 % (11.5-14.5)
[2025-01-15 07:45] LABS: ALT (SGPT) 22 U/L (0-50); AST (SGOT) 28 U/L (17-59); Albumin 4.4 g/dl (3.5-5.0); Alkaline Phosphatase 77 U/L (38-126); Blood Urea Nitrogen 17 mg/dl (9-20); Calcium 9.6 mg/dl (8.4-10.2); Carbon Dioxide 27 mmol/L (22-30); Chloride 105 mmol/L (98-107); Glucose 92 mg/dl (70-99); Potassium 4.4 mmol/L (3.5-5.1); Sodium 139 mmol/L (135-145); Total Protein 6.9 g/dl (6.3-8.2); eGFR > 60.00
[2025-01-15 08:15] LABS: PSA, Total - Diagnostic 28.50 ng/ml (0.0-4.0); TSH 2.11 uIU/ml (0.47-4.68)
== END ==
LOC: REG 06:20
PROVIDERS: ATTENDING PHYSICIAN Internal Medicine Hematology & Oncology; FAMILY PHYSICIAN Internal Medicine
DX: C61 Malignant neoplasm of prostate (principal); C79.51 Secondary malignant neoplasm of bone; I82.4Z1 Acute embolism and thrombosis of unspecified deep veins of right distal lower extremity; R60.0 Localized edema; K59.00 Constipation, unspecified; E83.51 Hypocalcemia; C7A.1 Malignant poorly differentiated neuroendocrine tumors; R31.0 Gross hematuria; R10.0 Acute abdomen
CPT/HCPCS: 36415; 80053; 84153; 84443; 85025

== ENCOUNTER → 2025-01-23 06:27 | Outpatient (REF) | payer OTHER, SELFPAY ==
[2025-01-23 07:08] LABS: Hematocrit 35.8 % (39.0-52.0); Hemoglobin 11.5 g/dL (13.0-18.0); Mean Corp Hgb Conc. 32.1 g/dL (33.0-37.0); Mean Corpuscular Volume 84.4 fL (80.0-94.0); Nucleated Red Blood Cells % 0 % (-); Platelet Count 178 10^3/uL (130-400); Red Cell Dist. Width 16.1 % (11.5-14.5)
== END ==
LOC: REG 06:27
PROVIDERS: ATTENDING PHYSICIAN Internal Medicine Hematology & Oncology; FAMILY PHYSICIAN Internal Medicine
DX: C61 Malignant neoplasm of prostate (principal); C79.51 Secondary malignant neoplasm of bone; I82.4Z1 Acute embolism and thrombosis of unspecified deep veins of right distal lower extremity; R60.0 Localized edema; K59.00 Constipation, unspecified; E83.51 Hypocalcemia; C7A.1 Malignant poorly differentiated neuroendocrine tumors; R31.0 Gross hematuria; R10.0 Acute abdomen
CPT/HCPCS: 36415; 85025

== ENCOUNTER → 2025-01-29 06:20 | Outpatient (REF) | payer OTHER, SELFPAY ==
[2025-01-29 07:11] LABS: Hematocrit 36.7 % (39.0-52.0); Hemoglobin 11.5 g/dL (13.0-18.0); Mean Corp Hgb Conc. 31.3 g/dL (33.0-37.0); Mean Corpuscular Volume 83.4 fL (80.0-94.0); Nucleated Red Blood Cells % 0 % (-); Platelet Count 213 10^3/uL (130-400); Red Cell Dist. Width 16.7 % (11.5-14.5)
== END ==
LOC: REG 06:20
PROVIDERS: ATTENDING PHYSICIAN Internal Medicine Hematology & Oncology; FAMILY PHYSICIAN Internal Medicine
DX: C61 Malignant neoplasm of prostate (principal); C79.51 Secondary malignant neoplasm of bone; I82.4Z1 Acute embolism and thrombosis of unspecified deep veins of right distal lower extremity; R60.0 Localized edema; K59.00 Constipation, unspecified; E83.51 Hypocalcemia; C7A.1 Malignant poorly differentiated neuroendocrine tumors; R31.0 Gross hematuria; R10.0 Acute abdomen
CPT/HCPCS: 36415; 85025

== ENCOUNTER → 2025-02-04 06:38 | Outpatient (REF) | payer OTHER, SELFPAY ==
[2025-02-04 08:12] LABS: Hematocrit 37.0 % (39.0-52.0); Hemoglobin 11.3 g/dL (13.0-18.0); Mean Corp Hgb Conc. 30.5 g/dL (33.0-37.0); Mean Corpuscular Volume 84.9 fL (80.0-94.0); Nucleated Red Blood Cells % 0 % (-); Platelet Count 278 10^3/uL (130-400); Red Cell Dist. Width 17.0 % (11.5-14.5)
[2025-02-04 08:32] LABS: ALT (SGPT) 31 U/L (0-50); AST (SGOT) 36 U/L (17-59); Albumin 4.1 g/dl (3.5-5.0); Alkaline Phosphatase 108 U/L (38-126); Blood Urea Nitrogen 14 mg/dl (9-20); Calcium 9.1 mg/dl (8.4-10.2); Carbon Dioxide 26 mmol/L (22-30); Chloride 105 mmol/L (98-107); Glucose 95 mg/dl (70-99); Potassium 4.4 mmol/L (3.5-5.1); Sodium 138 mmol/L (135-145); Total Protein 6.9 g/dl (6.3-8.2); eGFR > 60.00
[2025-02-04 09:08] LABS: PSA, Total - Diagnostic 33.50 ng/ml (0.0-4.0); TSH 1.64 uIU/ml (0.47-4.68)
== END ==
LOC: REG 06:38
PROVIDERS: ATTENDING PHYSICIAN Internal Medicine Hematology & Oncology; FAMILY PHYSICIAN Internal Medicine
DX: C61 Malignant neoplasm of prostate (principal); C79.51 Secondary malignant neoplasm of bone; I82.4Z1 Acute embolism and thrombosis of unspecified deep veins of right distal lower extremity; R60.0 Localized edema; K59.00 Constipation, unspecified; E83.51 Hypocalcemia; C7A.1 Malignant poorly differentiated neuroendocrine tumors; R31.0 Gross hematuria; R10.0 Acute abdomen
CPT/HCPCS: 36415; 80053; 84153; 84443; 85025

== ENCOUNTER → 2025-02-11 06:17 | Outpatient (REF) | payer OTHER, SELFPAY ==
[2025-02-11 08:17] LABS: Hematocrit 34.2 % (39.0-52.0); Hemoglobin 10.4 g/dL (13.0-18.0); Mean Corp Hgb Conc. 30.4 g/dL (33.0-37.0); Mean Corpuscular Volume 85.9 fL (80.0-94.0); Nucleated Red Blood Cells % 0 % (-); Platelet Count 275 10^3/uL (130-400); Red Cell Dist. Width 17.9 % (11.5-14.5)
== END ==
LOC: REG 06:17
PROVIDERS: ATTENDING PHYSICIAN Internal Medicine Hematology & Oncology; FAMILY PHYSICIAN Internal Medicine
DX: C61 Malignant neoplasm of prostate (principal); C79.51 Secondary malignant neoplasm of bone; I82.4Z1 Acute embolism and thrombosis of unspecified deep veins of right distal lower extremity; R60.0 Localized edema; K59.00 Constipation, unspecified; E83.51 Hypocalcemia; C7A.1 Malignant poorly differentiated neuroendocrine tumors; R31.0 Gross hematuria; R10.0 Acute abdomen
CPT/HCPCS: 36415; 85025

== ENCOUNTER → 2025-02-13 10:33 | Outpatient (REF) | payer OTHER, SELFPAY ==
[2025-02-13 11:19] LABS: Urine Character Slightly Cloudy (Clear)
[2025-02-13 11:26] LABS: Urine Red Blood Cell 70-80 /HPF (0-2); Urine Squamous Cell 0-2 /LPF (Few); Urine White Cell 0-2 /HPF (0-5)
[2025-02-13 11:37] LABS: Blood Urea Nitrogen 15 mg/dl (9-20); Calcium 9.7 mg/dl (8.4-10.2); Carbon Dioxide 26 mmol/L (22-30); Chloride 104 mmol/L (98-107); Glucose 109 mg/dl (70-99); Potassium 4.7 mmol/L (3.5-5.1); Sodium 135 mmol/L (135-145); eGFR > 60.00
== END ==
LOC: REG 10:33
PROVIDERS: ATTENDING PHYSICIAN Nurse Practitioner Adult Health; FAMILY PHYSICIAN Internal Medicine
DX: C61 Malignant neoplasm of prostate (principal)
CPT/HCPCS: 36415; 80048; 81003; 81015; 87086

== ENCOUNTER → 2025-02-22 09:55 | Outpatient (REF) | payer OTHER, SELFPAY | LOC: HWRAD 09:55 | PROVIDERS: ATTENDING PHYSICIAN Nurse Practitioner Adult Health; FAMILY PHYSICIAN Internal Medicine | DX: C61 Malignant neoplasm of prostate (principal); C79.51 Secondary malignant neoplasm of bone; I82.4Z1 Acute embolism and thrombosis of unspecified deep veins of right distal lower extremity; R60.0 Localized edema; K59.00 Constipation, unspecified | CPT/HCPCS: 76770 ==

== ENCOUNTER → 2025-02-25 06:21 | Outpatient (REF) | payer OTHER, SELFPAY ==
[2025-02-25 08:05] LABS: Hematocrit 34.0 % (39.0-52.0); Hemoglobin 10.5 g/dL (13.0-18.0); Mean Corp Hgb Conc. 30.9 g/dL (33.0-37.0); Mean Corpuscular Volume 85.9 fL (80.0-94.0); Nucleated Red Blood Cells % 0 % (-); Platelet Count 330 10^3/uL (130-400); Red Cell Dist. Width 17.7 % (11.5-14.5)
[2025-02-25 08:28] LABS: ALT (SGPT) 27 U/L (0-50); AST (SGOT) 45 U/L (17-59); Albumin 4.0 g/dl (3.5-5.0); Alkaline Phosphatase 143 U/L (38-126); Blood Urea Nitrogen 12 mg/dl (9-20); Calcium 9.0 mg/dl (8.4-10.2); Carbon Dioxide 27 mmol/L (22-30); Chloride 104 mmol/L (98-107); Glucose 90 mg/dl (70-99); Potassium 4.3 mmol/L (3.5-5.1); Sodium 139 mmol/L (135-145); Total Protein 6.8 g/dl (6.3-8.2); eGFR > 60.00
[2025-02-25 08:56] LABS: PSA, Total - Diagnostic 38.00 ng/ml (0.0-4.0); TSH 1.86 uIU/ml (0.47-4.68)
== END ==
LOC: REG 06:21
PROVIDERS: ATTENDING PHYSICIAN Internal Medicine Hematology & Oncology; FAMILY PHYSICIAN Internal Medicine
DX: C61 Malignant neoplasm of prostate (principal); C79.51 Secondary malignant neoplasm of bone; I82.4Z1 Acute embolism and thrombosis of unspecified deep veins of right distal lower extremity; R60.0 Localized edema; K59.00 Constipation, unspecified; E83.51 Hypocalcemia; C7A.1 Malignant poorly differentiated neuroendocrine tumors; R31.0 Gross hematuria; R10.0 Acute abdomen
CPT/HCPCS: 36415; 80053; 84153; 84443; 85025

== ENCOUNTER → 2025-03-06 13:55 | Outpatient (REF) | payer OTHER, SELFPAY | LOC: MRI 3T 13:55 | PROVIDERS: ATTENDING PHYSICIAN Internal Medicine Hematology & Oncology; FAMILY PHYSICIAN Internal Medicine | DX: C61 Malignant neoplasm of prostate (principal); C79.51 Secondary malignant neoplasm of bone; I82.4Z1 Acute embolism and thrombosis of unspecified deep veins of right distal lower extremity; R60.0 Localized edema; K59.00 Constipation, unspecified; E83.51 Hypocalcemia; C7A.1 Malignant poorly differentiated neuroendocrine tumors; R31.0 Gross hematuria; R10.0 Acute abdomen | CPT/HCPCS: 72158; A9575 ==

== ENCOUNTER → 2025-03-18 08:48 | Outpatient (REF) | payer OTHER, SELFPAY ==
[2025-03-18 09:01] LABS: Hematocrit 34.2 % (39.0-52.0); Hemoglobin 10.7 g/dL (13.0-18.0); Mean Corp Hgb Conc. 31.3 g/dL (33.0-37.0); Mean Corpuscular Volume 86.4 fL (80.0-94.0); Platelet Count 401 10^3/uL (130-400); Red Cell Dist. Width 16.5 % (11.5-14.5)
[2025-03-18 10:06] LABS: ALT (SGPT) 41 U/L (0-50); AST (SGOT) 57 U/L (17-59); Albumin 3.9 g/dl (3.5-5.0); Alkaline Phosphatase 207 U/L (38-126); Blood Urea Nitrogen 10 mg/dl (9-20); Calcium 9.3 mg/dl (8.4-10.2); Carbon Dioxide 28 mmol/L (22-30); Chloride 101 mmol/L (98-107); Glucose 121 mg/dl (70-99); Potassium 4.3 mmol/L (3.5-5.1); Sodium 137 mmol/L (135-145); Total Protein 7.1 g/dl (6.3-8.2); eGFR > 60.00
[2025-03-18 10:38] LABS: PSA, Total - Diagnostic 69.20 ng/ml (0.0-4.0); TSH 1.68 uIU/ml (0.47-4.68)
== END ==
LOC: OIDL 08:48
PROVIDERS: ATTENDING PHYSICIAN Internal Medicine Hematology & Oncology; FAMILY PHYSICIAN Internal Medicine
DX: C61 Malignant neoplasm of prostate (principal); C79.51 Secondary malignant neoplasm of bone; I82.4Z1 Acute embolism and thrombosis of unspecified deep veins of right distal lower extremity; R60.0 Localized edema; K59.00 Constipation, unspecified; E83.51 Hypocalcemia; C7A.1 Malignant poorly differentiated neuroendocrine tumors; R31.0 Gross hematuria; R10.0 Acute abdomen
CPT/HCPCS: 36415; 80053; 84153; 84443; 85025

== ENCOUNTER → 2025-03-25 07:43 | Outpatient (REF) | payer OTHER, SELFPAY ==
[2025-03-25 08:22] LABS: Hematocrit 35.1 % (39.0-52.0); Hemoglobin 10.9 g/dL (13.0-18.0); Mean Corp Hgb Conc. 31.1 g/dL (33.0-37.0); Mean Corpuscular Volume 86.2 fL (80.0-94.0); Platelet Count 408 10^3/uL (130-400); Red Cell Dist. Width 16.7 % (11.5-14.5)
== END ==
LOC: OIDL 07:43
PROVIDERS: ATTENDING PHYSICIAN Internal Medicine Hematology & Oncology; FAMILY PHYSICIAN Internal Medicine
DX: C61 Malignant neoplasm of prostate (principal); C79.51 Secondary malignant neoplasm of bone; I82.4Z1 Acute embolism and thrombosis of unspecified deep veins of right distal lower extremity; R60.0 Localized edema; K59.00 Constipation, unspecified; E83.51 Hypocalcemia; C7A.1 Malignant poorly differentiated neuroendocrine tumors; R31.0 Gross hematuria; R10.0 Acute abdomen
CPT/HCPCS: 36415; 85025

== ENCOUNTER → 2025-03-29 11:53 | Outpatient (REF) | payer OTHER, SELFPAY ==
[2025-03-29 12:25] LABS: Hematocrit 39.0 % (39.0-52.0); Hemoglobin 11.8 g/dL (13.0-18.0); Mean Corp Hgb Conc. 30.3 g/dL (33.0-37.0); Mean Corpuscular Volume 87.8 fL (80.0-94.0); Nucleated Red Blood Cells % 0 % (-); Platelet Count 406 10^3/uL (130-400); Red Cell Dist. Width 17.9 % (11.5-14.5)
== END ==
LOC: REG 11:53
PROVIDERS: ATTENDING PHYSICIAN Internal Medicine Hematology & Oncology; FAMILY PHYSICIAN Internal Medicine
DX: C61 Malignant neoplasm of prostate (principal); C79.51 Secondary malignant neoplasm of bone; I82.4Z1 Acute embolism and thrombosis of unspecified deep veins of right distal lower extremity; R60.0 Localized edema; K59.00 Constipation, unspecified; E83.51 Hypocalcemia; C7A.1 Malignant poorly differentiated neuroendocrine tumors; R31.0 Gross hematuria; R10.0 Acute abdomen
CPT/HCPCS: 36415; 85025

== ENCOUNTER → 2025-04-01 08:16 | Outpatient (REF) | payer OTHER, SELFPAY ==
[2025-04-01 08:35] LABS: Hematocrit 34.7 % (39.0-52.0); Hemoglobin 10.9 g/dL (13.0-18.0); Mean Corp Hgb Conc. 31.4 g/dL (33.0-37.0); Mean Corpuscular Volume 87.0 fL (80.0-94.0); Platelet Count 319 10^3/uL (130-400); Red Cell Dist. Width 17.4 % (11.5-14.5)
== END ==
LOC: OIDL 08:16
PROVIDERS: ATTENDING PHYSICIAN Internal Medicine Hematology & Oncology; FAMILY PHYSICIAN Internal Medicine
DX: C61 Malignant neoplasm of prostate (principal); C79.51 Secondary malignant neoplasm of bone; I82.4Z1 Acute embolism and thrombosis of unspecified deep veins of right distal lower extremity; R60.0 Localized edema; K59.00 Constipation, unspecified; E83.51 Hypocalcemia; C7A.1 Malignant poorly differentiated neuroendocrine tumors; R31.0 Gross hematuria; R10.0 Acute abdomen
CPT/HCPCS: 36415; 85025

== ENCOUNTER → 2025-04-05 09:33 | Outpatient (REF) | payer OTHER, SELFPAY ==
[2025-04-05 10:15] LABS: INR 1.15; PT 14.9 Sec (11.4-14.6)
[2025-04-05 10:20] VITALS: BP 132/88; BP_SYST 84; BMI 26.2
[2025-04-05 11:30] VITALS: BP 123/83; BP_SYST 72
[2025-04-05 11:35] VITALS: BP 115/86; BP_SYST 69
[2025-04-05 11:40] VITALS: BP 117/78; BP_SYST 75
[2025-04-05 11:45] VITALS: BP 113/72; BP_SYST 74
[2025-04-05 11:59] VITALS: BP 128/85; BP_SYST 84
== END ==
LOC: RADI 09:33
PROVIDERS: ATTENDING PHYSICIAN Internal Medicine Hematology & Oncology; FAMILY PHYSICIAN Internal Medicine; OTHER PHYSICIAN Physician Assistant
DX: C79.51 Secondary malignant neoplasm of bone (principal); C61 Malignant neoplasm of prostate
CPT/HCPCS: 20225; 36415; 77012; 85610; 88307; 88311; 88333; 88341; 88342; 99152

== ENCOUNTER → 2025-04-08 08:03 | Outpatient (REF) | payer OTHER, SELFPAY ==
[2025-04-08 08:22] LABS: Hematocrit 33.7 % (39.0-52.0); Hemoglobin 10.6 g/dL (13.0-18.0); Mean Corp Hgb Conc. 31.5 g/dL (33.0-37.0); Mean Corpuscular Volume 86.0 fL (80.0-94.0); Platelet Count 272 10^3/uL (130-400); Red Cell Dist. Width 17.0 % (11.5-14.5)
== END ==
LOC: OIDL 08:03
PROVIDERS: ATTENDING PHYSICIAN Internal Medicine Hematology & Oncology; FAMILY PHYSICIAN Internal Medicine
DX: C61 Malignant neoplasm of prostate (principal); C79.51 Secondary malignant neoplasm of bone; I82.4Z1 Acute embolism and thrombosis of unspecified deep veins of right distal lower extremity; R60.0 Localized edema; K59.00 Constipation, unspecified; E83.51 Hypocalcemia; C7A.1 Malignant poorly differentiated neuroendocrine tumors; R31.0 Gross hematuria; R10.0 Acute abdomen
CPT/HCPCS: 36415; 85025

== ENCOUNTER → 2025-04-15 08:49 | Outpatient (REF) | payer OTHER, SELFPAY ==
[2025-04-15 09:08] LABS: Hematocrit 34.4 % (39.0-52.0); Hemoglobin 10.5 g/dL (13.0-18.0); Mean Corp Hgb Conc. 30.5 g/dL (33.0-37.0); Mean Corpuscular Volume 88.2 fL (80.0-94.0); Platelet Count 264 10^3/uL (130-400); Red Cell Dist. Width 17.3 % (11.5-14.5)
== END ==
LOC: OIDL 08:49
PROVIDERS: ATTENDING PHYSICIAN Internal Medicine Hematology & Oncology; FAMILY PHYSICIAN Internal Medicine
DX: C61 Malignant neoplasm of prostate (principal); C79.51 Secondary malignant neoplasm of bone; I82.4Z1 Acute embolism and thrombosis of unspecified deep veins of right distal lower extremity; R60.0 Localized edema; K59.00 Constipation, unspecified; E83.51 Hypocalcemia; C7A.1 Malignant poorly differentiated neuroendocrine tumors; R31.0 Gross hematuria; R10.0 Acute abdomen
CPT/HCPCS: 36415; 85025

== ENCOUNTER → 2025-04-22 08:30 | Outpatient (REF) | payer OTHER, SELFPAY ==
[2025-04-22 08:54] LABS: Hematocrit 31.5 % (39.0-52.0); Hemoglobin 9.7 g/dL (13.0-18.0); Mean Corp Hgb Conc. 30.8 g/dL (33.0-37.0); Mean Corpuscular Volume 87.3 fL (80.0-94.0); Platelet Count 268 10^3/uL (130-400); Red Cell Dist. Width 17.3 % (11.5-14.5)
== END ==
LOC: OIDL 08:30
PROVIDERS: ATTENDING PHYSICIAN Internal Medicine Hematology & Oncology; FAMILY PHYSICIAN Internal Medicine
DX: C61 Malignant neoplasm of prostate (principal); C79.51 Secondary malignant neoplasm of bone; I82.4Z1 Acute embolism and thrombosis of unspecified deep veins of right distal lower extremity; R60.0 Localized edema; K59.00 Constipation, unspecified; E83.51 Hypocalcemia; C7A.1 Malignant poorly differentiated neuroendocrine tumors; R31.0 Gross hematuria; R10.0 Acute abdomen
CPT/HCPCS: 36415; 85025

== ENCOUNTER → 2025-04-23 11:54 | Outpatient (REF) | payer OTHER, SELFPAY ==
[2025-04-23 13:18] LABS: ALT (SGPT) 186 U/L (0-50); AST (SGOT) 260 U/L (17-59); Albumin 3.7 g/dl (3.5-5.0); Alkaline Phosphatase 446 U/L (38-126); Blood Urea Nitrogen 15 mg/dl (9-20); Calcium 7.7 mg/dl (8.4-10.2); Carbon Dioxide 25 mmol/L (22-30); Chloride 101 mmol/L (98-107); Glucose 110 mg/dl (70-99); Iron 54 ug/dl (49-181); Potassium 4.6 mmol/L (3.5-5.1); Sodium 135 mmol/L (135-145); Total Protein 7.1 g/dl (6.3-8.2); eGFR > 60.00
[2025-04-23 13:29] LABS: Total Iron Binding Capacity 176 ug/dl (261-462)
[2025-04-23 14:33] LABS: Ferritin 2830.0 ng/ml (17.9-464.0)
[2025-04-23 14:35] LABS: Urine Character Cloudy (Clear)
[2025-04-23 15:48] LABS: Urine Red Blood Cell >100 /HPF (0-2)
== END ==
LOC: REG 11:54
PROVIDERS: ATTENDING PHYSICIAN Nurse Practitioner Adult Health; FAMILY PHYSICIAN Internal Medicine
DX: C61 Malignant neoplasm of prostate (principal); C79.51 Secondary malignant neoplasm of bone; I82.4Z1 Acute embolism and thrombosis of unspecified deep veins of right distal lower extremity; R60.0 Localized edema; K59.00 Constipation, unspecified; E83.51 Hypocalcemia; C7A.1 Malignant poorly differentiated neuroendocrine tumors; R31.0 Gross hematuria; R10.0 Acute abdomen
CPT/HCPCS: 36415; 80053; 81003; 81015; 82728; 83540; 83550; 87086